=== PATIENT | female | born 1935 | race Caucasian/White ===

== ENCOUNTER 2018-02-24 13:47 | Emergency (ER) | payer OTHER, MEDICARE ==
--- OUTSIDE RECORDS SUMMARY | 2018-02-24 13:49 | XMS REPORT ---
:1935 [facility] Address [address] [place] [address] [address] [place] [address] Care Team Providers Name Role Phone Unavailable Unavailable Unavailable Payers Payer Name Policy Type Policy Number Effective Date Expiration Date Problems This patient has no known problems. Allergies, Adverse Reactions, Alerts Allergy Allergy Status Severity Reaction(s) Onset Inactive Treating Comments Name Type Date Date Clinician codeine DA Active MT 2017-12 00:00:0 0 codeine DA Active MT 2017-07 00:00:0 0 Medications This patient has no known medications.
--- OUTSIDE RECORDS SUMMARY | 2018-02-24 13:49 | XMS REPORT | Clinical Summary ---
:1935 Author Organization [facility] Address [address] [place] [id number] Care Team Providers Name Role Phone Porfirio Palmer MD Primary Care Provider Unavailable Allergies Active Allergy Reactions Severity Noted Date Comments Codeine Other (See Comments) 12/04/2015 Medications Medication Sig Dispensed Refills Start Date End Date Status levothyroxine 0 10/14/2015 Active (SYNTHROID, LEVOTHROID) 100 MCG tablet omeprazole (PriLOSEC) 0 10/11/2015 Active 40 MG capsule polyethylene glycol Take 17 g by 90 packet 0 12/04/2015 Active (MIRALAX) 17 gram mouth daily for packet 90 days. linaclotide (LINZESS) Take 1 capsule 30 capsule 11 12/04/2015 Active 145 mcg capsule (145 mcg total) by mouth daily before breakfast. Active Problems Problem Noted Date Diverticulosis of large intestine without hemorrhage 12/04/2015 Hemorrhoids 12/04/2015 Duodenal diverticulum 12/04/2015 HH (hiatus hernia) 12/04/2015 Angiodysplasia of colon 12/04/2015 Gastroduodenitis 12/04/2015 Hypothyroidism due to acquired atrophy of thyroid 12/04/2015 Gallstones 12/04/2015 Family history of cancer in mother 12/04/2015 Constipation 12/04/2015 Family History Medical History Relation Name Comments Colon cancer Mother Relation Name Status Comments Father Mother Social History Tobacco Use Types Packs/Day Years Used Date Never Smoker Smokeless Tobacco: Never Used Alcohol Use Drinks/Week oz/Week Comments No Sex Assigned at Date Recorded Not on file Job Start Date Occupation Industry Not on file Not on file Not on file Travel History Travel Start Travel End No recent travel history available. Last Filed Vital Signs Not on file Plan of Treatment Health Maintenance Due Date Last Done Comments SHINGLES VACCINES (1 of 2) 10/22/1987 PNEUMOCOCCAL POLYSACCHARIDE VACCINE AGE 65 AND OVER 2002 PNEUMOCOCCAL-13 2002 INFLUENZA VACCINE 09/07/2017 Results Not on fileafter 02/23/2017 Insurance Payer Benefit Plan / Group Subscriber ID Type Phone Address AARP AARP SUPPLEMENT xxxxxxxxx-xx Commercial MEDICARE MEDICARE PART A AND B xxxxxxxxxx Medicare [place], [place] ([place]) [place] [address] Advance Directives Patient has advance care planning documents on file. For more information, please contact:Enoc [id number] [place] [address]
[2018-02-24 16:07] LABS: Absolute Lymphocytes (CBC) 0.9 K/uL (0.7-4.9); Absolute Monocytes 0.4 K/uL (0.1-1.3); Absolute Neutrophil 4.8 K/uL (1.8-8.0); Basophils % 0.5 % (0-1.3); Eosinophils % 3.5 % (0-4.4); Hematocrit 38.1 % (36.0-45.0); Lymphocytes % 13.8 % (15.3-44.8); MPV 8.1 fL (7.6-11.3); Monocytes % 6.4 % (3.3-12.3); RBC Red Blood Cell Count 4.56 M/uL (3.86-4.86)
[2018-02-24] MEDS ORDERED: NA CHLORIDE 0.9% 500 ML ONE (16:19)
[2018-02-24] MEDS ORDERED: ONDANSETRON 4 MG/2 ML VIAL ONE (16:19)
[2018-02-24 16:22] LABS: ALT/SGPT 24 U/L (12-78); AST/SGOT 22 U/L (15-37); Albumin 3.4 g/dL (3.4-5.0); Alkaline Phosphatase 94 U/L (45-117); BUN Blood Urea Nitrogen 8 mg/dL (7-18); Bicarbonate 27 mmol/L (21-32); Bilirubin Direct < 0.1 mg/dL (0-0.2); Bilirubin Total 0.3 mg/dL (0.2-1.0); Glucose Level 105 mg/dL (74-106); Lipase 88 U/L (73-393); Potassium 3.5 mmol/L (3.5-5.1); Protein, Total 7.6 g/dL (6.4-8.2); Sodium Level 135 mmol/L (136-145)
--- NOTE | 2018-02-24 17:26 | RAD REPORT ---
EXAM DESCRIPTION: CT - Abdomen Pelvis W Contrast - 02/24/2018 5:09 pm CLINICAL HISTORY: Abdominal pain, vomiting, diarrhea COMPARISON: May 2014 TECHNIQUE: Biphasic, helical CT imaging of the abdomen and pelvis was performed following 100 ml non -ionic IV contrast. No oral contrast administered. All CT scans are performed using dose optimization technique as appropriate and may include automated exposure control or mA/KV adjustment according to patient size. FINDINGS: No suspicious pleuroparenchymal process in the lung bases. Heart size is normal. Very mini mal pericardial effusion present similar to 2015. Liver shows a fatty infiltration pattern with no focal liver lesions seen. Spleen and pancreas show n o suspicious findings. Small gallstone is seen. No wall thickening or other active gallbladder proces s seen. Biliary tree is normal. Symmetric renal function is seen with no hydronephrosis or suspicious renal mass. No pyelonephritis o r acute parenchymal process. No bladder abnormalities. No adrenal abnormalities. A 5 centimeter hiatal hernia is present. No gastric wall thickening or mass. Patient has a 5 centimet er duodenal diverticulum containing air, food debris and hyperdense material that may be old contrast or medication. Jejunum and duodenum show no acute findings. Appendix is normal. Air and fluid are present in nondila adin colon. There is some hyper dense material in the colon probably the same as what is in the duoden al diverticulum. This is probably Pepto-Bismol or other dense material. Colon is mostly decompressed. Minimal diverticulosis present without diverticulitis. No free air, free fluid or inflammatory stranding. No hernia, mass or bulky lymphadenopathy. Disc and bony degenerative changes are present. No acute or pathologic bone process. Metallic foreign body is seen in the retroperitoneal fat posterior to the left kidney IMPRESSION: Contrast enhanced CT abdomen and pelvis showing no emergent finding. Nonacute findings are detailed in the body of the report and similar to 2015.
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
== END 2018-02-24 18:23 | disposition home or self-care (01) ==
LOC: ER 13:47
DX: R19.7 Diarrhea, unspecified (principal)
CPT/HCPCS: 36415; 74177; 80048; 80076; 83690; 85025; J2405; Q9967

== ENCOUNTER 2019-02-05 06:28 | Emergency (ER) | payer OTHER, MEDICARE ==
--- OUTSIDE RECORDS SUMMARY | 2019-02-05 06:31 | XMS REPORT ---
:1935 Author Organization [facility] Address [address] [place] [address] Care Team Providers Name Role Phone Unavailable Unavailable Unavailable Payers Payer Name Policy Type Policy Number Effective Date Expiration Date Problems This patient has no known problems. Allergies, Adverse Reactions, Alerts Allergy Allergy Status Severity Reaction(s) Onset Inactive Treating Comments Name Type Date Date Clinician codeine DA Active OK 2019-01 00:00:0 0 codeine DA Active OK 2019-01 00:00:0 0 codeine DA Active OK 2018-05 00:00:0 0 codeine DA Active OK 2018-04 00:00:0 0 codeine DA Active OK 2017-12 00:00:0 0 codeine DA Active OK 2017-07 00:00:0 0 Medications This patient has no known medications. Results Test Description Test Time Test Comments Text Results Atomic Results Result Comments - XR FLUORO FOR SPINE 2019-01-10 08:25:00 Patient Name: DOMENICO WYNN ANSHU INJ Unit No: [id number] EXAMS: CPT CODE: [id number] XR FLUORO FOR SPINE INJ 58164 CERVICAL TRANSFORAMINAL INJECTION REFERRING PHYSICIAN: PREOPERATIVE DIAGNOSIS: Cervical radiculitis POSTOPERATIVE DIAGNOSIS: Bilateral cervical radiculopathy PROCEDURES PERFORMED: Fluoroscopically guided needle localization of the bilateral C6, bilateral C7 spinal nerves with transforaminal epidural steroid injection/injections. 2. Transforaminal epidurogram/epidurograms at bilateral C6, bilateral C7 FINDINGS: Poor filling all. Concordant provocation bilateral C6 shoulders, left C7 arm. Pain relief-100%. ANTIBIOTICS:Cefazolin ESTIMATED BLOOD LOSS: Minimal ANESTHESIA: (TIVA ) Total intravenous anesthetic (patient intolerant to sedatives and hypnotics) COMPLICATIONS: None DETAILS OF PROCEDURE: After obtaining stable vital signs, informed consent and IV access, with no known contraindications to proceeding, the patient was taken to the fluoroscopy suite and placed in a supine position with all extremities padded and appropriate monitors placed. A sterile prep and drape was performed over the cervical spine. Using fluoroscopic visualization at each level the insertion site was marked for a paravertebral approach to the foramen. Using standard technique, a 27gauge needle was advanced to the base of the pedicle. In AP view, final positioning was obtained outside the 6 on a clock position on the pedicle. Then, 0.5 ml of Isovue-300 contrast was injected to produce the epidurograms. No paresthesias were elicited with needle insertion or injection and there were no signs of intravascular or intrathecal uptake. Then, 0.5 ml of 4% lidocaine was injected as a test dose with no signs of intravascular or intrathecal uptake. Next, 10 mg of Decadron was injected incrementally with frequent negative aspirations.Each subsequent cervical nerve root sleeve was done with the same technique and medications were used.There were no signs of intravascular or intrathecal uptake. The patient's vital signs remained stable. The patient was taken to the PACU in good condition. [facility] NAME: DOMENICO WYNN ANSHU [address] [facility] PHYS: DOCUD - Maged Eduardo MD [place], [place] [address] : 1935 AGE: 83 SEX: F LOC: NIRAV PHONE #: [phone] EXAM DATE: 01/10/2019 STATUS: REG [facility] FAX #: [phone] RAD #: D/C DT PAGE 1 Signed Report (CONTINUED) Patient Name: DOMENICO WYNN Unit No: [id number] EXAMS: CPT CODE: [id number] XR FLUORO FOR SPINE INJ 96710 <Continued> at 0825 Reported and signed by: Maged Eduardo M.D. CC: Technologist: Summer Nieves(R) Transcribed D/ (08) Brenda [facility] NAME: DOMENICO WYNN ANSHU [address] [facility] PHYS: Maged Dyer MD [place] [address] : 1935 AGE: 83 SEX: F LOC: NIRAV PHONE #: [phone] EXAM DATE: 01/10/2019 STATUS: REG [facility] FAX #: [phone] RAD #: D/C DT PAGE 2 Signed Report Patient Name: DOMENICO WYNN ANSHU Unit No: [id number] EXAMS: CPT CODE: [id number] XR FLUORO FOR SPINE INJ 66005 <Continued> Orig Print D/T: S: 01/10/2019 (08) [facility] NAME: TIANNA,DOMENICO BRASHER [address] [facility] PHYS: Maged Dyer MD [place] [address] : 1935 AGE: 83 SEX: F LOC: NIRAV PHONE #: [phone] EXAM DATE: 01/10/2019 STATUS: REG [facility] FAX #: [phone] RAD #: D/C DT PAGE 3 Signed Report - XR FLUORO FOR SPINE 2018-12-19 12:33:00 Patient Name: DOMENICO WYNN INJ Unit No: [id number] EXAMS: CPT CODE: [id number] XR FLUORO FOR SPINE INJ 60597 LUMBAR TRANSFORAMINAL INJECTION REFERRING PHYSICIAN: PREOPERATIVE DIAGNOSIS: Degenerative Lumbar Disc Disease. POSTOPERATIVE DIAGNOSIS: Bilateral lumbar radiculopathy PROCEDURES PERFORMED 1. Fluoroscopically guided needle localization of the bilateral L4, bilateral L5 spinal nerve/nerves with transforaminal epidural steroid injection/injections. 2. Transforaminal epidurogram/epidurograms at bilateral L4, bilateral L5. FINDINGS: Poor filling all. Concordant provocation bilateral L5 hips. Pain relief-100%. ANTIBIOTIC: Cefazolin ESTIMATED BLOOD LOSS: Minimal ANESTHESIA: (TIVA )Total intravenous anesthetic (patient intolerant to sedatives and hypnotics) COMPLICATIONS: None DETAILS OF PROCEDURE: After obtaining stable vital signs, informed consent and IV access, with no known contraindications to proceeding, the patient was taken to the fluoroscopy suite and placed in a prone position with all extremities padded and appropriate monitors placed. A sterile prep and drape was performed over the lumbosacral spine. Using fluoroscopic visualization at each level the insertion site was marked for a paravertebral approach to the foramen. Using standard technique, a 25 gauge needle was advanced to the base of the pedicle. In AP view, final positioning was obtained outside the 6 on the clock position on the pedicle. Then, 1 ml of Isovue-300 contrast was injected to produce the epidurograms. No paresthesias were elicited with needle insertion or injection and there were no signs of intravascular or intrathecal uptake. Then, with 1 ml of 4% lidocaine and 10 mg of triamcinolone was injected incrementally with frequent negative aspirations. There were no signs of intravascular or intrathecal uptake. Each subsequent level was done using the same technique and medications. The patient's vital signs remained stable. The patient was taken to the PACU in good condition. at 1233 Reported and signed by: Maged Eduardo M.D. [facility] NAME: DOMENICO WYNN [address] [facility] PHYS: Maged Dyer MD [place] [address] : 1935 AGE: 83 SEX: F LOC: NIRAV PHONE #: [phone] EXAM DATE: 12/19/2018 STATUS: REG [facility] FAX #: [phone] RAD #: D/C DT PAGE 1 Signed Report (CONTINUED) Patient Name: DOMENICO WYNN Unit No: [id number] EXAMS: CPT CODE: [id number] XR FLUORO FOR SPINE INJ 69779 <Continued> CC: Maged Eduardo MD Technologist: CHIP ANDERSEN RT(R) Transcribed D/ (1233) t.DARIN.UVD [facility] NAME: DOMENICO WYNN [address] [facility] PHYS: Maged Dyer MD [place], [place] [address] : 1935 AGE: 83 SEX: F LOC: NIRAV PHONE #: [phone] EXAM DATE: 12/19/2018 STATUS: REG [facility] FAX #: [phone] RAD #: D/C DT PAGE 2 Signed Report Patient Name: DOMENICO WYNN ANSHU Unit No: [id number] EXAMS: CPT CODE: [id number] XR FLUORO FOR SPINE INJ 45774 <Continued> Orig Print D/T: S: 12/19/2018 (1236) [facility] NAME: DOMENICO WYNN ANSHU [address] [facility] PHYS: DOCUD - Doctor,Maged De Jesus MD [place], [place] [address] : 1935 AGE: 83 SEX: F LOC: NIRAV PHONE #: [phone] EXAM DATE: 12/19/2018 STATUS: REG [facility] FAX #: [phone] RAD #: D/C DT PAGE 3 Signed Report - XR FLUORO FOR SPINE 2018-06-06 12:24:00 Patient Name: DOMENICO WYNN INJ Unit No: [id number] EXAMS: CPT CODE: [id number] XR FLUORO FOR SPINE INJ 34340 LUMBAR TRANSFORAMINAL INJECTION REFERRING PHYSICIAN: PREOPERATIVE DIAGNOSIS: Degenerative Lumbar Disc Disease. POSTOPERATIVE DIAGNOSIS: Lumbar radiculopathy PROCEDURES PERFORMED 1. Fluoroscopically guided needle localization of the bilateral L4, left L5, left L3 spinal nerve/nerves with transforaminal epidural steroid injection/injections. 2. Transforaminal epidurogram/epidurograms at bilateral L4, left L5, left L3. FINDINGS: Poor filling all. Concordant provocation bilateral L4 back, left L5 hip. Pain relief-100%. ANTIBIOTIC: Cefazolin ESTIMATED BLOOD LOSS: Minimal ANESTHESIA: (TIVA )Total intravenous anesthetic (patient intolerant to sedatives and hypnotics) COMPLICATIONS: None DETAILS OF PROCEDURE: After obtaining stable vital signs, informed consent and IV access, with no known contraindications to proceeding, the patient was taken to the fluoroscopy suite and placed in a prone position with all extremities padded and appropriate monitors placed. A sterile prep and drape was performed over the lumbosacral spine. Using fluoroscopic visualization at each level the insertion site was marked for a paravertebral approach to the foramen. Using standard technique, a 25 gauge needle was advanced to the base of the pedicle. In AP view, final positioning was obtained outside the 6 on the clock position on the pedicle. Then, 1 ml of Isovue-300 contrast was injected to produce the epidurograms. No paresthesias were elicited with needle insertion or injection and there were no signs of intravascular or intrathecal uptake. Then, with 1 ml of 4% lidocaine and 10 mg of triamcinolone was injected incrementally with frequent negative aspirations. There were no signs of intravascular or intrathecal uptake. Each subsequent level was done using the same technique and medications. The patient's vital signs remained stable. The patient was taken to the PACU in good condition. at 4022 Reported and signed by: Maged Eduardo M.D. [facility] NAME: DOMENICO WYNN [address] [facility] PHYS: Maged Dyer MD [place], [place] [address] : 1935 AGE: 82 SEX: F LOC: NIRAV PHONE #: [phone] EXAM DATE: 06/06/2018 STATUS: REG [facility] FAX #: [phone] RAD #: D/C DT PAGE 1 Signed Report (CONTINUED) Patient Name: DOMENICO WYNN ANSHU Unit No: [id number] EXAMS: CPT CODE: [id number] XR FLUORO FOR SPINE INJ 35698 <Continued> CC: Maged Eduardo MD Technologist: JEVON GARCIA RT(R) Transcribed D/ (5161) t.RINKUR.UVD [facility] NAME: DOMENICO WYNN [address] [facility] PHYS: Maged Dyer MD [place], [place] [address] : 1935 AGE: 82 SEX: F LOC: NIRAV PHONE #: [phone] EXAM DATE: 06/06/2018 STATUS: REG [facility] FAX #: [phone] RAD #: D/C DT PAGE 2 Signed Report Patient Name: DOMENICO WYNN Unit No: [id number] EXAMS: CPT CODE: [id number] XR FLUORO FOR SPINE INJ 25910 <Continued> Orig Print D/T: S: 06/06/2018 (1227) [facility] NAME: DOMENICO WYNN [address] [facility] PHYS: DOCUD - DoctorMaged MD [place], [place] [address] : 1935 AGE: 82 SEX: F LOC: NIRAV PHONE #: [phone] EXAM DATE: 06/06/2018 STATUS: REG [facility] FAX #: [phone] RAD #: D/C DT PAGE 3 Signed Report - XR FLUORO FOR SPINE 2018-04-25 11:30:00 Patient Name: DOMENICO WYNN INJ Unit No: [id number] EXAMS: CPT CODE: [id number] XR FLUORO FOR SPINE INJ 73692 LUMBAR TRANSFORAMINAL INJECTION REFERRING PHYSICIAN: PREOPERATIVE DIAGNOSIS: Degenerative Lumbar Disc Disease. POSTOPERATIVE DIAGNOSIS: Bilateral lumbar radiculopathy PROCEDURES PERFORMED 1. Fluoroscopically guided needle localization of the bilateral L4, bilateral L5, bilateral S1 spinal nerve/nerves with transforaminal epidural steroid injection/injections. 2. Transforaminal epidurogram/epidurograms at bilateral L4, bilateral L5, bilateral S1. FINDINGS: Poor filling all. Concordant provocation bilateral L4 legs, left L5 hip, listhesis L4-5. Pain relief-100%. ANTIBIOTIC: Cefazolin ESTIMATED BLOOD LOSS: Minimal ANESTHESIA: (TIVA )Total intravenous anesthetic (patient intolerant to sedatives and hypnotics) COMPLICATIONS: None DETAILS OF PROCEDURE: After obtaining stable vital signs, informed consent and IV access, with no known contraindications to proceeding, the patient was taken to the fluoroscopy suite and placed in a prone position with all extremities padded and appropriate monitors placed. A sterile prep and drape was performed over the lumbosacral spine. Using fluoroscopic visualization at each level the insertion site was marked for a paravertebral approach to the foramen. Using standard technique, a 25 gauge needle was advanced to the base of the pedicle. In AP view, final positioning was obtained outside the 6 on the clock position on the pedicle. Then, 1 ml of Isovue-300 contrast was injected to produce the epidurograms. No paresthesias were elicited with needle insertion or injection and there were no signs of intravascular or intrathecal uptake. Then, with 1 ml of 4% lidocaine and 10 mg of triamcinolone was injected incrementally with frequent negative aspirations. There were no signs of intravascular or intrathecal uptake. Each subsequent level was done using the same technique and medications. The patient's vital signs remained stable. The patient was taken to the PACU in good condition. at 1130 Reported and signed by: Maged Eduardo M.D. [facility] NAME: TIANNA,DOMENICO ANN [address] [facility] PHYS: Maged Dyer MD [place] [address] : 1935 AGE: 82 SEX: F LOC: NIRAV PHONE #: [phone] EXAM DATE: 04/25/2018 STATUS: [facility] FAX #: [phone] RAD #: D/C DT PAGE 1 Signed Report (CONTINUED) Patient Name: DOMENICO WYNN ANSHU Unit No: [id number] EXAMS: CPT CODE: [id number] XR FLUORO FOR SPINE INJ 78789 <Continued> CC: Maged Eduardo MD Technologist: BIA GUZMAN RT(R) Transcribed D/ (6267) t.RINKUR.UVD [facility] NAME: TIANNA,DOMENICO ANN [address] [facility] PHYS: Maged Dyer MD [place] [address] : 1935 AGE: 82 SEX: F LOC: NIRAV PHONE #: [phone] EXAM DATE: 04/25/2018 STATUS: [facility] FAX #: [phone] RAD #: D/C DT PAGE 2 Signed Report Patient Name: DOMENICO WYNN ANSHU Unit No: [id number] EXAMS: CPT CODE: [id number] XR FLUORO FOR SPINE INJ 97448 <Continued> Orig Print D/T: S: 04/28/2018 (2935) [facility] NAME: DOMENICO WYNN ANSHU [address] [facility] PHYS: Maged Dyer MD [place] [address] : 1935 AGE: 82 SEX: F LOC: YAnthonyNATALYA PHONE #: [phone] EXAM DATE: 04/25/2018 STATUS: DEP [facility] FAX #: [phone] RAD #: D/C DT PAGE 3 Signed Report - XR C-SPINE 6+V 2018-04-11 17:30:00 Patient Name: DOMENICO WYNN ANSHU Unit No: [id number] EXAMS: CPT CODE: [id number] XR C-SPINE 6+V 56107 COMPARISON: Concurrent CT. IMAGES PROVIDED: 7 FINDINGS: Grade 1 retrolisthesis of C5-C6 is present. No significant motion is seen with flexion/extension. No acute fracture. Marked disc degeneration is seen at C5-C6. Scattered cervical facet hypertrophy. Soft tissues are unremarkable. Lung apices are clear. IMPRESSION: Multilevel cervical spondylosis, greatest at C5-C6. at 1730 Reported and signed by: Aashish Winchester M.D. CC: Maged Eduardo MD Technologist: RT Sarah.(R) Transcribed D/ (5571) [facility]: DOMENICO WYNN ANSHU [address] [facility] PHYS: Maged Dyer MD : 1935 AGE: 82 SEX: F [place] [address] LOC: GodwinRAD PHONE #: [phone] EXAM DATE: 04/10/2018 STATUS: DEP [facility] FAX #: [phone] RAD #: D/C DT PAGE 1 Signed Report Patient Name: DOMENICO WYNN ANSHU Unit No: [id number] EXAMS: CPT CODE: [id number] XR C-SPINE 6+V 84651 <Continued> Orig Print D/T: S: 04/11/2018 (0022) [facility] NAME: DOMENICO WYNN [address] [facility] PHYS: DOCUD - Doctor,Maged De Jesus MD : 1935 AGE: 82 SEX: F [place], [place] [address] LOC: YAnthonyRAD PHONE #: [phone] EXAM DATE: 04/10/2018 STATUS: DEP [facility] FAX #: [phone] RAD #: D/C DT PAGE 2 Signed Report - CT C-SPINE W/O CONT 2018-04-11 10:32:00 Patient Name: DOMENICO WYNN Unit No: [id number] EXAMS: CPT CODE: [id number] CT C-SPINE W/O CONT 29420 TECHNIQUE: Spiral CT images were obtained with axial images displayed of the cervical spine. Sagittal and coronal reconstructions were also performed. COMPARISON: Concurrent radiographs FINDINGS: Alignment: Retrolisthesis of C5-C6 measures 4 mm. Bone Lesion / Fracture: None present. Prevertebral / Paraspinal Soft Tissues: Unremarkable. C2/3: Broad disc bulge osteophyte complex. No significant foraminal or central canal stenosis. C3/4: Severe left, mild right facet hypertrophy is noted as well as bilateral uncovertebral hypertrophy. There is marked left, moderate right foraminal stenosis. Mild central canal stenosis. C4/5: Diffuse disc bulge is suspected. Moderate bilateral facet hypertrophy. There is mild left foraminal stenosis. No significant right foraminal stenosis. Mild central canal stenosis is visualized. C5/6: Severe disc degeneration with height loss and endplate marrow changes. Grade 1 retrolisthesis. Broad disc bulge osteophyte complex is present as well as severe bilateral uncovertebral hypertrophy. There is moderate to severe left, severe right foraminal stenosis as well as moderate to severe central canal stenosis. C6/7: Broad disc bulge osteophyte complex. Uncovertebral hypertrophy contributes to mild foraminal stenosis. No definite central canal stenosis. C7/T1: No significant abnormality. IMPRESSION: Multilevel cervical spondylosis, greatest at C5-C6, where there is likely moderate to severe central canal stenosis as well as moderate to severe left, severe right foraminal stenosis. at 1032 Reported and signed by: Aashish Winchester M.D. CC: Maged Eduardo MD Technologist: Bennett Johnson,RT(R) CTDI: DLP: Trnscrpt: 04/11/2018 (1032) t.KARL [facility] NAME: DOMENICO WYNN ANSHU [address] [facility] PHYS: Maged Dyer MD : 1935 AGE: 82 SEX: F [place] [address] LOC: Y.RAD PHONE #: [phone] EXAM DATE: 04/10/2018 STATUS: DEP [facility] FAX #: [phone] RAD #: D/C DT PAGE 1 Signed Report Patient Name: DOMENICO WYNN ANSHU Unit No: [id number] EXAMS: CPT CODE: [id number] CT C-SPINE W/O CONT 74008 <Continued> Orig Print D/T: S: 04/11/2018 (1035) [facility] NAME: DOMENICO WYNN [address] PHYS: Maged Dyer MD : 1935 AGE: 82 SEX: F [place] [address] LOC: Y.RAD PHONE #: [phone] EXAM DATE: 04/10/2018 STATUS: DEP [facility] FAX #: [phone] RAD #: D/C DT PAGE 2 Signed Report
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
[2019-02-05 07:25] VITALS: BP 143/80; TEMP 97.8; O2SAT 96
== END 2019-02-05 07:09 | disposition home or self-care (01) ==
LOC: ER 06:28
DX: M62.838 Other muscle spasm (principal); Z88.5 Allergy status to narcotic agent
CPT/HCPCS: 99283

== ENCOUNTER 2022-01-07 12:49 | Emergency (ER) | payer OTHER ==
--- OUTSIDE RECORDS SUMMARY | 2022-01-07 12:52 | XMS REPORT | Continuity of Care Document ---
:1935 Author Organization [facility] t Address [address] [place] [address] Care Team Providers Name Role Phone [phone] Primary Care Physician Unavailable FOG_A_Provider Attending Clinician Unavailable Chun Cortes Attending Clinician Unavailable Tami Lucia Attending Clinician [phone] Chun Cortes Attending Clinician [phone] RONNA CUELLAR Attending Clinician Unavailable DAMIAN CURTIS Attending Clinician Unavailable MALACHI NELSON Attending Clinician Unavailable LULI MALDONADO Attending Clinician Unavailable MD LULI MALDONADO Attending Clinician Unavailable MD RONNA CUELLAR Attending Clinician Unavailable Maged Eduardo Attending Clinician Unavailable FOG_A_Provider Admitting Clinician Unavailable Chun Cortes Admitting Clinician Unavailable KNOW, DOES_NOT Admitting Clinician Unavailable Physician, No Primary or Family Admitting Clinician UnavailLULI Grigsby Admitting Clinician Unavailable MD LULI MALDONADO Admitting Clinician Unavailable MD RONNA CUELLAR Admitting Clinician Unavailable Payers Payer Name Policy Type Policy Number Effective Date Expiration Date S Banner [id number] 2021 00:00:00 [facility] MEDICARE [id number] 2020 ADVANTAGE 00:00:00 Problems Condition Condition Condition Status Onset Resolution Last Treating Co mments Source Name Details Category Date Date Treatment Clinician Date Spinal Spinal Problem Active [facility] stenosis Stenosis 8-16 Orthop e of lumbar of Lumbar 00:00: dic region Region 00 Sports Medicin e Neck pain Neck Pain Problem Active Aza jason 8-08 Orthope 00:00: dic 00 Sports Medicin e 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 4-16 Or thope s s 00:00: dic 00 Sports Medicin e Lumbosacra Lumbosacra Problem Active A zalea l l 3-03 Orthope spondylosi Spondylosi 00:00: di c s s 00 Sports Medicin e Stenosis Stenosis Problem Active [facility] a of spinal of Spinal 2-07 Orth ope canal due Canal Due 00:00: dic to bone to Bone 00 Sports Medicin e Connective Connective Problem Active A chrissy tissue and Tissue and 2-07 Or thope disc Disc 00:00: dic stenosis Stenosis 00 Sports of of Medicin interverte Interverte e bral bral foramina Foramina Multiple-l Multiple-l Problem Active A chrissy evel evel 2-07 Orthope cervical Cervical 00:00: dic spondylosi Spondylosi 00 Sp orts s with s with Medicin radiculopa Radiculopa e thy thy 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 00:00: dic 00 Sports Medicin e Spinal Spinal Problem Active 2018-02 [facility] stenosis Stenosis 1-07 Orthop e in in 00:00: dic cervical Cervical 00 Sports region Region Medicin e Cervical Cervical Problem Active 2018-02 [facility] a disc Disc 1-07 [facility] disorder Disorder 00:00: dic with with 00 Sports radiculopa Radiculopa Me dicin thy thy e Cervical Cervical Problem Active [facility] a disc Disc 2-19 [facility]ope prolapse Prolapse 00:00: dic with with 00 Sports radiculopa Radiculopa Me dicin thy thy e Lumbar Lumbar Problem Active 2017-02 [facility] disc Disc 1-27 [facility]ope prolapse Prolapse 00:00: dic with with 00 Sports radiculopa Radiculopa Me dicin thy thy e Degenerati Degenerati Problem Active 2017-02 Megan lowe on of on of 03-05 Orthope lumbar Lumbar 00:00: dic interverte Interverte 00 Sp orts bral disc bral Disc Medi tegan e Lumbosacra Lumbosacra Problem Active 2017-02 A chrissy dumont stenosis l Stenosis - Or thope 00:00: dic 00 Sports Medicin e Hemorrhoid Hemorrhoid Disease Active 2015-02 M ethodi s s 00:00: Hospita 00 l Duodenal Duodenal Disease Active 2015-02 Metho di diverticul diverticul um um 00:00: Hospita 00 l HH (hiatus HH (hiatus Disease Active 2015-02 M ethodi hernia) hernia) 00:00: Hospita 00 l 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 ethodi enitis enitis 00:00: Hospita 00 l Hypothyroi Hypothyroi Disease Active 2015-02 M ethodi dism due dism due to to 00:00: Hospita acquired acquired 00 l atrophy of atrophy of thyroid thyroid Gallstones Gallstones Disease Active 2015-02 M ethodi 00:00: Hospita 00 l Family Family Disease Active 2015-02 Methodi history of history of cancer in cancer in 00:00: Hosp davide mother mother 00 l Constipati Constipati Disease Active 2015-02 M ethodi on on 00:00: Hospita 00 l Knee joint 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 1-18 Orth ope 00:00: dic 00 Sports Medicin e Osteoarthr Osteoarthr Problem Active A chrissy itis of itis of 8-08 Orthope knee Knee 00:00: dic 00 Sports Medicin e 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 Styloid 7-07 Orthope tenosynovi Tenosynovi 00:00: di c tis tis 00 Sports Medicin e Tibialis Tibialis Problem Active [facility] a tendinitis Tendinitis 6-16 Or thope 00:00: dic 00 Sports Medicin e 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 00:00: dic 00 Sports Medicin e Degenerati Degenerati Problem Active A chrissy on of on of - Orthope cervicotho Cervicotho 00:00: di c racic racic 00 Sports interverte Interverte Me dicin bral disc bral Disc e Low back Low Back Problem Active [facility] a pain Pain 08-25 Orthope 00:00: dic 00 Sports Medicin e Acquired Acquired Problem Active [facility] a spondyloli Spondyloli 08-25 Or thope sthesis sthesis 00:00: dic 00 Sports Medicin e Lumbar Lumbar Problem Active [facility] radiculopa Radiculopa -24 Or thope thy thy 00:00: dic 00 Sports Medicin e Synovitis Synovitis Problem Active Aza jason and and 2-13 Orthope tenosynovi Tenosynovi 00:00: di c tis tis 00 Sports Medicin e Current Current Problem Active [facility] tear of Tear of 2-13 Orthope medial Medial 00:00: dic cartilage Cartilage 00 Spor ts AND/OR AND/OR Medicin meniscus Meniscus e of knee of Knee Anemia Anemia Problem Active 2011-02 [facility] 02-25 Orthope 00:00: dic 00 Sports Medicin e 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 02-25 Or thope t t 00:00: dic 00 Sports Medicin e Diverticul Diverticul Disease Active M ethodi osis osis [facility]osp[facility] l AVM AVM Disease Active [facility]i (arteriove (arteriove [facility] malformati malformati l on) of on) of colon colon GERD GERD Disease Active Methodi (gastroeso (gastroeso st phageal phageal [facility]ospita reflux reflux l disease) disease) Dysphagia Dysphagia Disease Active Met hodi [facility]osp[facility] l Allergies, Adverse Reactions, Alerts Allergy Allergy Status Severity Reaction(s) Onset Inactive Treating Comm ents Source Name Type Date Date Clinician codeine DA Active SV ITCHING 2021-02 [facility] 02-28 [place] 00:00: [facility]ope 00 dic Hospita l codeine DA Active SV unknown 2021-02 [facility] -14 [place] 00:00: Orthope 00 dic Hospita l No Known DA Active U [facility] Allergie 09-22 [facility] 00:00: Orthope 00 dic Hospita l gabapent DA Active U 2022-0 [facility] in - [place] 00:00: Orthope 00 dic Hospita l tizanidi DA Active U 2021-0 [facility] ne 05-29 [place] 00:00: Orthope 00 dic Hospita l oxcarbaz DA Active U 2021-0 [facility] epine 05-29 [place] 00:00: Orthope 00 dic Hospita l duloxeti DA Active U 2021-0 [facility] ne 05-29 [place] 00:00: Orthope 00 dic Hospita l pregabal DA Active U 2021-0 [facility] in - [place] 00:00: Orthope 00 dic Hospita l codeine DA Active MT ITCHING 2021-0 [facility] 3-15 [place] 00:00: Orthope 00 dic Hospita l gabapent DA Active U UNKNOWN 2021-0 [facility] in -14 [place] 00:00: Orthope 00 dic Hospita l tizanidi DA Active U UNKNOWN 2021-0 [facility] ne -14 [place] 00:00: Orthope 00 dic Hospita l oxcarbaz DA Active U UNKNOWN 2021-0 [facility] epine 3-14 [place] 00:00: Orthope 00 dic Hospita l duloxeti DA Active U UNKNOWN 2021-0 [facility] ne 3-14 [place] 00:00: Orthope 00 dic Hospita l pregabal DA Active U UNKNOWN 2021-0 [facility] in 3-14 [place] 00:00: Orthope 00 dic Hospita l codeine DA Active MT ITCHING 2021-0 [facility] 2-21 [place] 00:00: Orthope 00 dic Hospita l codeine DA Active MT 2020-0 [facility] 1-13 [place] 00:00: Orthope 00 dic Hospita l codeine DA Active MT ITCHING 2020-0 [facility] 1-13 [place] 00:00: Orthope 00 dic Hospita l codeine DA Active MT 2019-1 [facility] 2-04 [place] 00:00: Orthope 00 dic Hospita l codeine DA Active MT ITCHING 2019-1 [facility] 2-04 [place] 00:00: Orthope 00 dic Hospita l codeine DA Active MT 2019-1 [facility] 2-03 [place] 00:00: Orthope 00 dic Hospita l codeine DA Active MT 2019-0 [facility] 4-30 [place] 00:00: Orthope 00 dic Hospita l codeine DA Active MT 2019-0 [facility] 3-19 [place] 00:00: Orthope 00 dic Hospita l FLUCONAZ DRUG Active MD ZHAO JOHANSEN 1-17 [place] 00:00: n 00 codeine DA Active MT 2017-02 [facility] 1-15 [place] 00:00: Orthope 00 dic Hospita l codeine DA Active MT [facility] 6-20 [place] 00:00: Orthope 00 dic Hospita l Codeine Propensi Active Other (See 2015-02 Met hodi ty to Comments) 0-27 st adverse 00:00: Hospita reaction 00 l s to drug Codeine Allergy Active 2011-02 [facility] to 02-25 Orthope substanc 00:00: dic e 00 Sports Medicin e Family History Family Member Diagnosis Comments Start Date Stop Date Source Natural father [facility] Social [facility] Social Habit Start Date Stop Date Quantity Comments Source Alcohol intake 2020-08-12 2020-08-12 Current [facility] 00:00:00 00:00:00 non-drinker of Hospital alcohol (finding) Tobacco use and 2017-01-04 2017-01-04 Smokeless tobacco Me thodist exposure 00:00:00 00:00:00 non-user Hospital Sex Ass[birth year] At [birth year] [facility] 00:00:00 00:00:00 Hospital Smoking Status Start Date Stop Date Source Never smoked tobacco [facility]spital Medications Ordered Filled Start Stop Current Ordering Indication Dosage Frequency Signature Comments Components Source Medication Medication Date Date Medication? Clinician (SIG) Name Name radha Yes Apply Metho di ne [address] (KENALOG) 14:58: Hospita 0.5 % cream 59 l estradioL Yes .01g Insert Method i (ESTRACE) 7-[address] 0.01 % (0.1 14:58: into the Ho spita mg/gram) 59 vagina. l vaginal cream acetaminoph Yes 500mg Q6H Take 500 M ethodi en 7-[address] (TYLENOL) 14:57: mouth Hospita 500 MG 55 every 6 l tablet (six) hours as needed for mild pain. aspirin 81 Yes 81mg Chew 81 Meth inocencio mg chewable 7-[address] tablet 14:57: Hospita 55 l omega Yes 1{tbl} Take 1 Methodi 3-dha-epa-f 08-[address] jerry oil 14:57: mouth. Hospita (Fish Oil) 55 l 1,000 mg (120 mg-180 mg) capsule MULTIVITAMI Yes 1{tbl} Take 1 Me thodi N ORAL 08-[address] 14:57: mouth. Hospita 55 l FERROUS Yes 1{tbl} Take 1 Method i SULFATE 08-[address] ORAL 14:57: mouth. Hospita 55 l gabapentin Yes 125mg Q.[id number] Take 125 Methodi (Neurontin) 08-12 [id number] mg by s t 250 mg/5 mL 14:57: 3D mouth 3 Hos holden solution 55 (three) l times a day. linaCLOtide Yes 145ug QD Take 1 Met hodi (Linzess) [address] 145 mcg 00:00: (145 mcg Hospit a capsule 00 total) by l mouth daily before breakfast. omeprazole Yes 40mg QD Take 1 Metho di (PriLOSEC) 08-[address] 40 MG 00:00: (40 mg Hospita capsule 00 total) by l mouth daily. DULoxetine Yes 30mg QD Take 30 mg M ethodi (CYMBALTA) [address] 30 MG 00:00: daily. Hospita capsule 00 l aspirin 325 aspirin 325 No aspirin [facility] mg tablet mg tablet 09 325 mg Ort hope 00:00: tablet dic 00 Sports Medicin e Multiple Multiple No Multiple A zalea Vitamin Vitamin 09 Vitamin Orthop e 00:00: dic 00 Sports Medicin e omeprazole omeprazole No omeprazole [facility] 40 mg 40 mg 02-15 40 mg Orthope capsule,del capsule,del 00:00: capsule,de dic ayed ayed 00 layed Sports release release release Medici n e Tylenol Tylenol No Tylenol Azal ea Extra Extra 09 Extra Orthope Strength Strength 00:00: Strength d ic 500 mg 500 mg 00 500 mg Sports tablet tablet tablet Medicin e aspirin 325 aspirin 325 No aspirin [facility] mg tablet mg tablet 02-15 325 mg Ort hope 00:00: tablet dic 00 Sports Medicin e Multiple Multiple No Multiple A zalea Vitamin Vitamin -09 Vitamin Orthop e 00:00: dic Sports Medicin e omeprazole omeprazole No omeprazole [facility] 40 mg 40 mg 1-09 40 mg Orthope capsule,del capsule,del 00:00: capsule,de dic ayed ayed 00 layed Sports release release release Medici n e Tylenol Tylenol No Tylenol Azal ea Extra Extra 1-09 Extra Orthope Strength Strength 00:00: Strength d ic 500 mg 500 mg 00 500 mg Sports tablet tablet tablet Medicin e aspirin 325 aspirin 325 No aspirin [facility] mg tablet mg tablet 02-15 325 mg Ort hope 00:00: tablet dic Sports Medicin e Multiple Multiple No Multiple A zalea Vitamin Vitamin -09 Vitamin Orthop e 00:00: dic Sports Medicin e omeprazole omeprazole No omeprazole [facility] 40 mg 40 mg 1-09 40 mg Orthope capsule,del capsule,del 00:00: capsule,de dic ayed ayed 00 layed Sports release release release Medici n e Tylenol Tylenol No Tylenol Azal ea Extra Extra 1-09 Extra Orthope Strength Strength 00:00: Strength d ic 500 mg 500 mg 00 500 mg Sports tablet tablet tablet Medicin e polyethylen 2015-02 Yes 17g QD Take 17 g M ethodi e glycol 0-[address] (MIRALAX) 00:00: daily for Hos holden 17 gram 00 90 days. l packet levothyroxi Yes Method i ne 10-13 st (SYNTHROID, 00:00: Hospit a LEVOTHROID) 00 l 100 MCG tablet omeprazole Yes 40mg QD Take 40 mg M ethodi (PriLOSEC) 10-[address] 40 MG 00:00: daily. Hospita capsule 00 l hydrocodone hydrocodone No hydrocodon [facility] 7.5 7.5 8-08 e 7.5 Orthope mg-acetamin mg-acetamin 00:00: mg-acetami dic ophen 325 ophen 325 00 nophen 325 Sports mg tablet mg tablet mg tablet Medicin 1-2 po q 1-2 po q 1-2 po q e 6-8 hours 6-8 hours 6-8 hours PRN pain PRN pain PRN pain Medrol Medrol No Medrol [facility] (Ministerio) 4 mg (Ministerio) 4 mg 8-08 (Ministerio) 4 mg Orthope tablets in tablets in 00:00: tablets in dic a dose pack a dose pack 00 a dose Sports as dir as dir pack as Medicin dir e hydrocodone hydrocodone No hydrocodon [facility] 7.5 7.5 8-08 e 7.5 Orthope mg-acetamin mg-acetamin 00:00: mg-acetami dic ophen 325 ophen 325 00 nophen 325 Sports mg tablet mg tablet mg tablet Medicin 1-2 po q 1-2 po q 1-2 po q e 6-8 hours 6-8 hours 6-8 hours PRN pain PRN pain PRN pain Medrol Medrol No Medrol [facility] (Ministerio) 4 mg (Ministerio) 4 mg 8-08 (Ministerio) 4 mg Orth[facility] tablets in tablets in 00:00: tablets in dic a dose pack a dose pack 00 a dose Sports as dir as dir pack as Medicin dir e Keflex 500 Keflex 500 No Keflex 500 [place] mg capsule mg capsule 8-05 mg capsule Orthope take 1 po take 1 po 00:00: take 1 po dic Q.I.D. Q.I.D. 00 Q.I.D. Sports Medicin e Keflex 500 Keflex 500 No Keflex 500 [facility] mg capsule mg capsule 8-05 mg capsule Orthope take 1 po take 1 po 00:00: take 1 po dic Q.I.D. Q.I.D. 00 Q.I.D. Sports Medicin e etodolac ER etodolac ER No etodolac [facility] 500 mg 500 mg 5-17 ER 500 mg Orthop e tablet,exte tablet,exte 00:00: tablet,ext dic nded nded 00 ended Sports release 24 release 24 release 24 Medicin hr i po qd hr i po qd hr i po qd e pc pc pc etodolac ER etodolac ER No etodolac [facility] 500 mg 500 mg 5-17 ER 500 mg Orthop e tablet,exte tablet,exte 00:00: tablet,ext dic nded nded 00 ended Sports release 24 release 24 release 24 Medicin hr i po qd hr i po qd hr i po qd e pc pc pc Synthroid Synthroid 2011-02 No Synthroid [facility] 137 mcg 137 mcg 1-19 137 mcg Orthop e tablet RX tablet RX 00:00: tablet RX dic by other MD by other MD 00 by other Sports Medicisaac e Synthroid Synthroid 2011-02 No Synthroid [facility] 137 mcg 137 mcg 1-19 137 mcg Orthop e tablet RX tablet RX 00:00: tablet RX dic by other MD by other MD 00 by other Sports MD Milagros razo Synthroid Synthroid 2011-02 No Synthroid [facility] 137 mcg 137 mcg 1-19 137 mcg Orthop e tablet RX tablet RX 00:00: tablet RX dic by other MD by other MD 00 by other Sports MD Linares e Synthroid Synthroid 2011-02 No Synthroid [facility] 137 mcg 137 mcg 1-19 137 mcg Orthop e tablet RX tablet RX 00:00: tablet RX dic by other MD by other MD 00 by other Sports Medicisaac e Synthroid Synthroid 2011-02 No Synthroid [facility] 137 mcg 137 mcg 1-19 137 mcg Orthop e tablet RX tablet RX 00:00: tablet RX dic by other MD by other MD 00 by other Sports MD Linares e Synthroid Synthroid 2011-02 No Synthroid [facility] 137 mcg 137 mcg 1-19 137 mcg Orthop e tablet RX tablet RX 00:00: tablet RX dic by other MD by other MD 00 by other Sports Medicisaac razo aspirin 325 aspirin 325 No aspirin [facility] mg mg 325 mg Orthope tablet,elizabeth tablet,elizabeth tablet,del dic yed release yed release ayed S ports RX by other RX by other release RX Medicin MD CAIN by other e diazepam 2 diazepam 2 No diazepam 2 [facility] mg tablet mg tablet mg tablet Orthope RX by other RX by other RX by dic MD CAIN other Sports Medicisaac e omeprazole omeprazole No omeprazole [facility] 10 mg 10 mg 10 mg Orth[facility] capsule,del capsule,del capsule,de dic ayed ayed layed Sports release RX release RX release RX Medicin by other MD by other MD by other e Prilosec 10 Prilosec 10 No Prilosec [facility] mg oral mg oral 10 mg oral Ort hope suspension, suspension, suspension dic delayed delayed ,delayed Sport s release RX release RX release RX Medicin by other MD by other MD by other e Fish Oil Fish Oil No Fish Oil Aza jason Orthope dic Sports Medicin e gabapentin gabapentin No 2capsul BID gabapentin [facility] 100 mg 100 mg e(s) 100 mg Orthope capsule capsule capsule dic Take 2 Take 2 Take 2 Sports capsules capsules capsules Med icin twice a day twice a day twice a e by oral by oral day by route for route for oral route 30 days. 30 days. for 30 days. iron iron No iron [facility] dic Sports Medicin e omeprazole omeprazole No omeprazole [facility] 10 mg 10 mg 10 mg Orthope capsule,del capsule,del capsule,de dic ayed ayed layed Sports release RX release RX release RX Medicin by other MD by other MD by other e tramadol 50 tramadol 50 No 1 BID tramadol [facility] mg tablet mg tablet 50 mg Orth ope Take 1 Take 1 tablet dic tablet tablet Take 1 Sports twice a day twice a day tablet Medicin by oral by oral twice a e route as route as day by needed for needed for oral route 10 days. 10 days. as needed for 10 days. Fish Oil Fish Oil No Fish Oil Aza jason Orthope dic Sports Medicin e gabapentin gabapentin No 2capsul BID gabapentin [facility] 100 mg 100 mg e(s) 100 mg Orthope capsule capsule capsule dic Take 2 Take 2 Take 2 Sports capsules capsules capsules Med icin twice a day twice a day twice a e by oral by oral day by route for route for oral route 30 days. 30 days. for 30 days. iron iron No iron [facility] dic Sports Medicin e tramadol 50 tramadol 50 No 1 Q1D tramadol [facility] mg tablet mg tablet 50 mg Orth ope Take 1 Take 1 tablet dic tablet tablet Take 1 Sports every day every day tablet Med icin by oral by oral every day e route as route as by oral needed for needed for route as 30 days. 30 days. needed for 30 days. triamcinolo triamcinolo No triamcinol [facility] ne ne one Orthope acetonide acetonide acetonide dic 0.5 % 0.5 % 0.5 % Sports topical topical topical Medici n cream APPLY cream APPLY cream e A THIN A THIN APPLY A LAYER TO LAYER TO THIN LAYER THE THE TO THE AFFECTED AFFECTED AFFECTED AREA(S) BY AREA(S) BY AREA(S) BY TOPICAL TOPICAL TOPICAL ROUTE 2 ROUTE 2 ROUTE 2 TIMES PER TIMES PER TIMES PER DAY DAY DAY Fish Oil Fish Oil No Fish Oil Aza jason Orthope dic Sports Medicin e gabapentin gabapentin No 2capsul BID gabapentin [facility] 100 mg 100 mg e(s) 100 mg Orthope capsule capsule capsule dic Take 2 Take 2 Take 2 Sports capsules capsules capsules Med icin twice a day twice a day twice a e by oral by oral day by route for route for oral route 30 days. 30 days. for 30 days. iron iron No iron [facility] dic Sports Medicin e tramadol 50 tramadol 50 No 1 Q1D tramadol [facility] mg tablet mg tablet 50 mg Orth ope Take 1 Take 1 tablet dic tablet tablet Take 1 Sports every day every day tablet Med icin by oral by oral every day e route as route as by oral needed for needed for route as 30 days. 30 days. needed for 30 days. triamcinolo triamcinolo No triamcinol [facility] ne ne one Orthope acetonide acetonide acetonide dic 0.5 % 0.5 % 0.5 % Sports topical topical topical Medici n cream APPLY cream APPLY cream e A THIN A THIN APPLY A LAYER TO LAYER TO THIN LAYER THE THE TO THE AFFECTED AFFECTED AFFECTED AREA(S) BY AREA(S) BY AREA(S) BY TOPICAL TOPICAL TOPICAL ROUTE 2 ROUTE 2 ROUTE 2 TIMES PER TIMES PER TIMES PER DAY DAY DAY Fish Oil Fish Oil No Fish Oil Aza jason Orthope dic Sports Medicin e gabapentin gabapentin No 2capsul BID gabapentin [facility] 100 mg 100 mg e(s) 100 mg Orthope capsule capsule capsule dic Take 2 Take 2 Take 2 Sports capsules capsules capsules Med icin twice a day twice a day twice a e by oral by oral day by route for route for oral route 30 days. 30 days. for 30 days. iron iron No iron [facility] dic Sports Medicin e tramadol 50 tramadol 50 No 1 Q1D tramadol [facility] mg tablet mg tablet 50 mg Orth ope Take 1 Take 1 tablet dic tablet tablet Take 1 Sports every day every day tablet Med icin by oral by oral every day e route as route as by oral needed for needed for route as 30 days. 30 days. needed for 30 days. triamcinolo triamcinolo No triamcinol [facility] ne ne one Orthope acetonide acetonide acetonide dic 0.5 % 0.5 % 0.5 % Sports topical topical topical Medici n cream APPLY cream APPLY cream e A THIN A THIN APPLY A LAYER TO LAYER TO THIN LAYER THE THE TO THE AFFECTED AFFECTED AFFECTED AREA(S) BY AREA(S) BY AREA(S) BY TOPICAL TOPICAL TOPICAL ROUTE 2 ROUTE 2 ROUTE 2 TIMES PER TIMES PER TIMES PER DAY DAY DAY aspirin 325 aspirin 325 No aspirin [facility] mg mg 325 mg [facility] tablet,elizabeth tablet,elizabeth tablet,del dic yed release yed release ayed S ports RX by other RX by other release RX Medicin MD by other e diazepam 2 diazepam 2 No diazepam 2 [facility] mg tablet mg tablet mg tablet Orthope RX by other RX by other RX by dic MD MD tala CAIN Sports Medicin e omeprazole omeprazole No omeprazole [facility] 10 mg 10 mg 10 mg [facility] capsule,del capsule,del capsule,de dic ayed ayed layed Sports release RX release RX release RX Medicin by other MD by other MD by other e Prilosec 10 Prilosec 10 No Prilosec [facility] mg oral mg oral 10 mg oral Ort hope suspension, suspension, suspension dic delayed delayed ,delayed Sport s release RX release RX release RX Medicin by other MD by other MD by other e Vital Signs Vital Name Observation Time Observation Value Comments Source Height 2021-12-01 00:00:00 65 [in_i] [facility] BMI (Body Mass 2021-12-01 00:00:00 29.1 kg/m2 [facility] Body Weight 2021-12-01 00:00:00 175 [lb_av] [facility] BP Diastolic 2021-10-13 00:00:00 83 mm[Hg] [facility] Height 2021-10-13 00:00:00 65 [in_i] [facility] BMI (Body Mass 2021-10-13 00:00:00 29.1 kg/m2 [facility]) Sports Medicine BP Systolic 2021-10-13 00:00:00 137 mm[Hg] [facility] Body Weight 2021-10-13 00:00:00 175 [lb_av] [facility] Height 2021-09-14 00:00:00 65 [in_i] [facility] HEIGHT 2020-05-07 15:23:00 160 cm WEIGHT 2020-05-07 15:23:00 81.1 kg Procedures This patient has no known procedures. Plan of Care Planned Activity Planned Date Details Comments Source Future Scheduled Test 2021-12-12 HEPATITIS B VACCINES [facility] 04:12:28 (1 of 3 - 3-dose series) [code = HEPATITIS B VACCINES (1 of 3 - 3-dose series)] Future Scheduled Test 2021-12-12 COVID-19 VACCINE (#1) [facility] 04:12:28 [code = COVID-19 VACCINE (#1)] Future Scheduled Test 2021-12-12 SHINGLES VACCINES (1 [facility] 04:12:28 of 2) [code = SHINGLES VACCINES (1 of 2)] Future Scheduled Test 2021-12-12 65+ PNEUMOCOCCAL [facility] 04:12:28 VACCINE (1 - PCV) [code = 65+ PNEUMOCOCCAL VACCINE (1 - PCV)] Future Scheduled Test 2021-12-12 INFLUENZA VACCINE [facility] 04:12:28 [code = INFLUENZA VACCINE] Future Appointment 2022-01-19 Danii Callahan, [id number] [facility] 13:00:00 [facility] [id number] Instructions [facility] Encounters Start End Encounter Admission Attending Care Care Encounter Source Date/Time Date/Time Type Type Clinicians Facility Department ID 2021-12-30 2021-12-30 Outpatient FOG_A_Provi AOSM AO [id number] [facility] 00:00:00 00:00:00 jay [id number] Orthop e dic Sports Medicin e 2021-12-29 2021-12-29 Outpatient MICHELLE ReyesTO PAIN [id number] [facility] 11:13:00 11:13:00 Chun [facility] l 2021-12-29 2021-12-29 Outpatient FOG_A_Provi AOSM AOSM [address] 00:00:00 00:00:00 jay [id number] Orthop e dic Sports Medicin e 2021-12-29 2021-12-29 Chun Latham AOSM [place] - Ortho [id number] [address] 00:00:00 00:00:00 Crissy Cortes MD: 7401 FOG_[place] [facility] Orthopedic Sport [facility]_OP [facility] [address] , Ph. 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 [phone] 2021-10-13 2021-10-13 Outpatient ELINOR Lucia [id number] 00:00:00 00:00:00 Tami [id number] 2021-09-22 2021-09-22 Outpatient MICHELLE ReyesTO PAIN [id number] [facility] 12:16:00 12:16:00 Chun [facility] 2021-09-22 2021-09-22 Outpatient FOG_A_Provi AOSM AOSM [address] 00:00:00 00:00:00 jay [id number] Orthop e dic Sports Medicin e 2021-09-22 2021-09-22 Outpatient ELINOR Cortes [id number] 00:00:00 00:00:00 Chun Latham [id number] 2021-09-22 2021-09-22 Chun Latham AO [place] - Ortho [id number] [address] 00:00:00 00:00:00 Crissy Cortes MD: 7401 FOG_[place] dic [facility]_OP [facility] [address] , Ph. 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 [phone] 2021-09-14 2021-09-14 Outpatient ELINOR LuciaEMILIE [id number] 00:00:00 00:00:00 Tami [id number] 2021-09-04 2021-09-04 Outpatient FOG_A_Provi AOSM AOSM [address] 00:00:00 00:00:00 jay [id number] Orthop e dic Sports Medicin e 2021-07-23 2021-07-23 Outpatient FOG_A_Provi AOSM AOSM [address] 09:59:00 09:59:00 jay [id number] Orthop e dic Sports Medicin e 2021-06-01 2021-06-01 Outpatient MICHELLE ReyesTO PAIN [id number] [facility] 12:28:00 12:28:00 Chun [facility] 2021-04-21 2021-04-21 Outpatient OZZY Reyes PAIN [id number] [facility] 09:32:00 09:32:00 Chun Bhatt [place] [facility] 2021-03-30 2021-03-30 Outpatient OZZY Reyes PAIN [id number] [facility] 13:36:00 13:36:00 Chun Kinsey [place] [facility] 2020-08-12 2020-08-12 Outpatient ALISA [facility] [id number] [place] 00:00:00 00:00:00 RONNA [address] 2020-07-24 2020-07-24 Outpatient ALISA [facility] [id number] [place] 00:00:00 00:00:00 RONNA [address] 2020-07-18 2020-07-18 Outpatient ALISA [facility] [id number] [place] 00:00:00 00:00:00 RONNA [address] 2020-07-18 2020-07-18 Outpatient ALISA [facility] [id number] [place] 00:00:00 00:00:00 RONNA [address] 2020-07-15 2020-07-15 Outpatient ALISA [facility] [id number] [place] 00:00:00 00:00:00 RONNA [address] 2020-05-22 2020-05-22 Outpatient OZZY CortesTO [id number] [facility] 11:09:21 11:09:21 Chun Kellie [place] [facility] 2020-05-07 2020-05-07 Outpatient NICK CURTIS [place] MDA [id number] 14:42:04 16:05:44 DAMIAN mathews 2020-05-07 2020-05-07 Outpatient NICK NELSON MDA MDA [id number] 14:14:25 14:14:25 MALACHI mathews 2020-03-07 2020-03-07 Outpatient OZZY Cortes RADI [id number] [facility] 10:00:00 10:00:00 Chun Hopkins [place] [facility] 2019-12-27 2019-12-27 Outpatient ERICA [facility] 2100 [id number] [place] 00:00:00 00:00:00 LULI [address] 2019-12-14 2019-12-14 Outpatient ERICA, [place] [id number] [place] 00:00:00 00:00:00 LULI [address] 2019-12-11 2019-12-11 Outpatient ERICA [facility] 2100 [id number] [place] 00:00:00 00:00:00 LULI [address] 2019-12-11 2019-12-11 Outpatient ALISA, [facility] [id number] [place] 00:00:00 00:00:00 RONNA [address] 2019-12-06 2019-12-06 Outpatient ALISA, [facility] [id number] [place] 00:00:00 00:00:00 RONNA [address] 2019-11-19 2019-11-19 Outpatient ERICA, [facility] 2100 [id number] [place] 00:00:00 00:00:00 LULI [address] 2019-11-15 2019-11-15 Outpatient ALISA [facility] [id number] [place] 00:00:00 00:00:00 RONNA [address] 2019-11-08 2019-11-08 Outpatient ALISA, [facility] [id number] [place] 00:00:00 00:00:00 RONNA [address] 2019-03-02 2019-03-02 Outpatient Doctor, OZZY RADI [id number] [facility] 11:00:00 11:00:00 Maged 31 [place] [facility] 2019-02-19 2019-02-19 Outpatient Doctor, OZZY PAIN [id number] [facility] 12:00:00 12:00:00 Maged 39 [place] [facility] Results Test Description Test Time Test Comments Results Result [facility] Comments - XR FLUORO FOR 2021-12-29 SPINE INJ 15:23:00 [facility] 1935 Sex: F Patient Name: DOMENICO WYNN Unit No: [id number] EXAMS: CPT CODE: [id number] XR FLUORO FOR SPINE INJ 83526 LUMBAR FACET INJECTION REFERRAL PHYSICIAN: None PREOPERATIVE DIAGNOSIS: Lumbar spondylosis without myelopathy or radiculopathy POSTOPERATIVE DIAGNOSIS: Lumbar spondylosis without myelopathy or radiculopathy PROCEDURE PERFORMED: Fluoroscopically guided needle localization of the right L3-4, bilateral L4-5 and right L5-S1 facets with arthrograms and diagnostic injection of local anesthetic and steroid. FINDINGS: All joints showed marked degenerative changes with a interconnecting sinus between the bilateral L4-5 facets are the degenerative L4-5 interspinous ligament. Provocation was negative. Anesthetic response was positive with the patient noting complete relief of her low back pain. Preinjection VAS 6/10. Postinjection VAS 0/10. Steroid response pending follow-up. ESTIMATED BLOOD LOSS: Minimal ANESTHESIA: TIVA COMPLICATIONS: None DETAILS OF PROCEDURE: After obtaining stable vital signs, informed consent and IV access patient was taken to the fluoroscopy suite where the patient was placed in a prone position with all extremities padded and appropriate monitors placed. The patient was sterilely prepped prepped and draped over the lumbosacral spine. Using fluoroscopic visualization, the insertion sites were marked for a paravertebral approach to each joint. Using standard technique, a 26 -gauge needle was inserted into each joint capsule without paresthesias. At all levels, aspiration was negative for clear serous fluid. Isovue-300 contrast 0.2 mL was injected to produce each arthrogram. There were no signs of intravascular or intrathecal uptake. Bupivicaine 0.75% 0.25 mL with Lidocaine 4% 0.25 ml and triamcinolone 16 mg was then injected incrementally into each joint. There were no signs of intravascular or intrathecal uptake. The patient's vital signs remained stable. All needles were removed and the patient was taken to the PACU in good condition. Electronically Signed: Chun Cortes M.D. Image: Image 1 Image: Image 2 Image: Image 3 [facility] NAME: DOMENICO WYNN [address] [facility] PHYS: Chun Laureano MD [place] [address] : 1935 AGE: 86 SEX: F LOC: NIRAV PHONE #: [phone] EXAM DATE: 12/29/2021 STATUS: REG [facility] FAX #: [phone] RAD #: D/C DT PAGE 1 Signed Report (CONTINUED) Patient Name: DOMENICO WYNN ANSHU Unit No: [id number] EXAMS: CPT CODE: [id number] XR FLUORO FOR SPINE INJ 76443 (Continued) at 1523 Reported and signed by: Chun Cortes M.D. CC: Chun Cortes MD Technologist: CHIP ANDERSEN RT(R) Transcribed D/ (1523) [facility] [place] NAME: DOMENICO WYNN ANSHU [address] [facility] PHYS: Chun Laureano MD [place] [address] : 1935 AGE: 86 SEX: F LOC: NIRAV PHONE #: [phone] EXAM DATE: 12/29/2021 STATUS: REG [facility] [place] FAX #: [phone] RAD #: D/C DT PAGE 2 Signed Report Patient Name: DOMENICO WYNN ANSHU Unit No: [id number] EXAMS: CPT CODE: [id number] XR FLUORO FOR SPINE INJ 69167 (Continued) Orig Print D/T: S: 12/29/2021 (1526) [place] [facility] [place] NAME: DOMENICO WYNN ANSHU [address] [facility] PHYS: Chun Laureano MD [place] [address] : 1935 AGE: 86 SEX: F LOC: NIRAV PHONE #: [phone] EXAM DATE: 12/29/2021 STATUS: REG [facility] [place] FAX #: [phone] RAD #: D/C DT PAGE 3 Signed Report - XR FLUORO FOR 2021-09-22 SPINE INJ 19:08:00 [facility] 1935 Sex: F Patient Name: DOMENICO WYNN Unit No: [id number] EXAMS: CPT CODE: [id number] XR FLUORO FOR SPINE INJ 38835 LUMBAR EPIRADICULAR INJECTION REFERRAL PHYSICIAN: None PREOPERATIVE DIAGNOSIS: Lumbar Radiculitis POSTOPERATIVE DIAGNOSIS: L4-5 grade 1 spondylolisthesis with stenosis and bilateral lumbar radiculitis PROCEDURES PERFORMED: Fluoroscopically guided needle localization of the bilateral L4 and bilateral L5 spinal nerves with transforaminal epidurograms and epidural injection of local anesthetic and steroid. FINDINGS: Fairly good flow seen through the foramen with mild flow limitation the bilateral L4-5 lateral recesses. Centrally there was mild to moderate anterior epidural displacement across the L3-4 and L4-5 discs. Provocation with injection was negative. Anesthetic response was positive with the patient noting relief of her bilateral lower extremity pain. Preinjection VAS 4/10. Postinjection VAS 0/10. Steroid response pending follow-up. ESTIMATED BLOOD LOSS: Minimal ANESTHESIA: TIVA COMPLICATIONS: None DETAILS OF PROCEDURE: After obtaining stable vital signs, informed consent and IV access, with no contraindications, the patient was taken to the operating room and placed in a prone position with all extremities padded and appropriate monitors placed. The patient was sterilely prepped and draped over the lumbosacral spine. Using fluoroscopic visualization the insertion sites were marked for paravertebral approaches and using standard technique, a 25 gauge needle was advanced to the base of each pedicle without paresthesias. Isovue-300 contrast 0.2 mL of was injected at each level incrementally with frequent negative aspirations to produce each epidurogram. There were no signs of intravascular or intrathecal uptake. Bupivicaine 0.75% 0.25 mL with lidocaine 4% 0.5 mL and Decadron 5 mg was then incrementally injected with frequent negative aspirations at each level and again there were no signs of intravascular or intrathecal uptake. The needles were removed and the patient was taken to the PACU in good condition. Electronically Signed: Chun Cortes M.D. Image: Image 1 Image: Image 2 at 1908 Reported and signed by: Chun Cortes M.D. [facility] NAME: DOMENICO WYNN ANSHU [address] [facility] PHYS: Chun Laureano MD [place] [address] : 1935 AGE: 85 SEX: F LOC: GodwinNATALYA PHONE #: [phone] EXAM DATE: 09/22/2021 STATUS: REG [facility] [place] FAX #: [phone] RAD #: D/C DT PAGE 1 Signed Report (CONTINUED) Patient Name: DOMENICO WYNN ANSHU Unit No: [id number] EXAMS: CPT CODE: [id number] XR FLUORO FOR SPINE INJ 54920 (Continued) CC: Chun Cortes MD Technologist: Ezequiel Murphy(R) Transcribed D/ (1907) [facility] NAME: DOMENICO WYNN ANSHU [address] [facility] PHYS: Chun Laureano MD [place] [address] : 1935 AGE: 85 SEX: F LOC: GodwinNATALYA PHONE #: [phone] EXAM DATE: 09/22/2021 STATUS: REG [facility] [place] FAX #: [phone] RAD #: D/C DT PAGE 2 Signed Report Patient Name: DOMENICO WYNN ANSHU Unit No: [id number] EXAMS: CPT CODE: [id number] XR FLUORO FOR SPINE INJ 88936 (Continued) Orig Print D/T: S: 09/22/2021 (1910) [place] [facility] [place] NAME: DOMENICO WYNN [address] [facility] PHYS: Chun Laureano MD [place], [place] [address] : 1935 AGE: 85 SEX: F LOC: NIRAV PHONE #: [phone] EXAM DATE: 09/22/2021 STATUS: REG [facility] FAX #: [phone] RAD #: D/C DT PAGE 3 Signed Report - XR FLUORO FOR 2021-06-01 SPINE INJ 20:49:00 [facility] 1935 Sex: F Patient Name: DOMENICO WYNN Unit No: [id number] EXAMS: CPT CODE: [id number] XR FLUORO FOR SPINE INJ 64932 DIAGNOSTIC LUMBAR FACET RFTC REFERRAL PHYSICIAN: None Preoperative diagnosis: Lumbar spondylosis without radiculopathy or myelopathy Postoperative diagnosis: Lumbar spondylosis without radiculopathy or myelopathy Procedure performed: Fluoroscopically guided needle localization of the bilateral L3 and bilateral L4 dorsal median branches and bilateral L5 dorsal rami with stereotactic localization and radiofrequency thermocoagulation. Findings:Initial anesthetic response was negative with the patient in persistent low back pain. Good stimulation was obtained at each level without radicular stimulation and no radicular blockade was obtained. Preinjection VAS 5/10. Postinjection VAS 5/10. Final outcome pending follow-up. Estimated blood loss: Minimal Anesthesia: TIVA Complications: None Details of procedure: After obtaining stable vital signs, informed consent and IV access, with no contraindications to proceeding, the patient was taken to the operating room and placed in a prone position with all extremities padded and appropriate monitors placed. The patient was sterilely prepped and draped over the lumbosacral spine. Using fluoroscopic visualization the insertion sites were marked for paravertebral approaches and using standard technique, a 20-gauge 1 cm bare tip insulated SMK needle was guided to the base of each transverse process and sacral ala without paresthesias. Aspiration was negative. Sensory stimulation was carried out at 0.6 volts and motor stimulation was carried out at 1.5-2 volts with needle tip position adjusted to optimize stimulation. No radicular stimulation was obtained at any site. Lidocaine 4% 0.25 mL with bupivicaine 0.75% 0.25 mL was then injected incrementally with frequent negative aspirations at each site. There were no signs of intravascular or intrathecal uptake. Two radiofrequency lesions were then carried out at each dorsal branch at 80 degrees Celsius for 60 seconds, adjusting the needle tip position between the 2 lesions along the course of each dorsal branch. No paresthesias were elicited. The patient's vital signs remained stable. All needles were removed and the patient was taken to the PACU in good condition. Image: Image 1 Image: Image 2 [facility] NAME: DOMENICO WYNN ANSHU [address] [facility] PHYS: Chun Laureano MD [place], [place] [address] : 1935 AGE: 85 SEX: F LOC: NIRAV PHONE #: [phone] EXAM DATE: 06/01/2021 STATUS: REG [facility] [place] FAX #: [phone] RAD #: D/C DT PAGE 1 Signed Report (CONTINUED) Patient Name: DOMENICO WYNN ANSHU Unit No: [id number] EXAMS: CPT CODE: [id number] XR FLUORO FOR SPINE INJ 12152 (Continued) at 2048 Reported and signed by: Chun Cortes M.D. CC: Technologist: Summer Nieves(R) Transcribed D/ (2048) David.[facility] NAME: DOMENICO WYNN ANSHU [address] [facility] PHYS: Chun Laureano MD [place], [place] [address] : 1935 AGE: 85 SEX: F LOC: NIRAV PHONE #: [phone] EXAM DATE: 06/01/2021 STATUS: REG [facility] [place] FAX #: [phone] RAD #: D/C DT PAGE 2 Signed Report Patient Name: DOMENICO WYNN ANSHU Unit No: [id number] EXAMS: CPT CODE: [id number] XR FLUORO FOR SPINE INJ 07184 () Orig Print D/T: S: 06/01/2021 (2051) [place] [facility] NAME: DOMENICO WYNN ANSHU [address] [facility] PHYS: Chun Laureano MD [place], [place] [address] : 1935 AGE: 85 SEX: F LOC: NIRAV PHONE #: [phone] EXAM DATE: 06/01/2021 STATUS: REG [facility] FAX #: [phone] RAD #: D/C DT PAGE 3 Signed Report - XR FLUORO FOR 2021-04-21 SPINE INJ 16:57:00 [facility]U : 1935 Sex: F Patient Name: DOMENICO WYNN ANSHU Unit No: [id number] EXAMS: CPT CODE: [id number] XR FLUORO FOR SPINE INJ 90507 LUMBAR EPIRADICULAR INJECTION REFERRAL PHYSICIAN: None PREOPERATIVE DIAGNOSIS: Lumbar Radiculitis POSTOPERATIVE DIAGNOSIS: Lumbar spondylosis and disc degeneration with grade one L4-5 spondylolisthesis, stenosis and lumbar radiculitis PROCEDURES PERFORMED: Fluoroscopically guided needle localization of the bilateral L4 and bilateral L5 spinal nerves with transforaminal epidurograms and epidural injection of local anesthetic and steroid. FINDINGS: Restricted flow seen through all foramen with mild horizontal root signs bilaterally at L4-5. Flow was minimally limited in the anterior epidural space across the L3-4 disc. Provocation with injection was negative. Anesthetic response was positive with the patient noting relief of her low back and bilateral lower extremity pain. Preinjection VAS 4/10. Postinjection VAS 0/10. Steroid response pending follow-up. ESTIMATED BLOOD LOSS: Minimal ANESTHESIA: TIVA COMPLICATIONS: None DETAILS OF PROCEDURE: After obtaining stable vital signs, informed consent and IV access, with no contraindications, the patient was taken to the operating room and placed in a prone position with all extremities padded and appropriate monitors placed. The patient was sterilely prepped and draped over the lumbosacral spine. Using fluoroscopic visualization the insertion sites were marked for paravertebral approaches and using standard technique, a 25 gauge needle was advanced to the base of each pedicle without paresthesias. Isovue-300 contrast 0.2 mL of was injected at each level incrementally with frequent negative aspirations to produce each epidurogram. There were no signs of intravascular or intrathecal uptake. Bupivicaine 0.75% 0.25 mL with lidocaine 4% 0.5 mL and Decadron 5 mg was then incrementally injected with frequent negative aspirations at each level and again there were no signs of intravascular or intrathecal uptake. The needles were removed and the patient was taken to the PACU in good condition. Image: Image 1 Image: Image 2 at 4122 Reported and signed by: Chun Cortes M.D. [place] [facility] [place] NAME: DOMENICO WYNN ANSHU [address] [facility] PHYS: Chun Laureano MD [place], [place] [address] : 1935 AGE: 85 SEX: F LOC: GodwinNATALYA PHONE #: [phone] EXAM DATE: 04/21/2021 STATUS: REG [facility] FAX #: [phone] RAD #: D/C DT PAGE 1 Signed Report (CONTINUED) Patient Name: DOMENICO WYNN ANSHU Unit No: [id number] EXAMS: CPT CODE: [id number] XR FLUORO FOR SPINE INJ 95735 (Continued) CC: Chun Cortes MD Technologist: CHIP ANDERSEN RT(R) Transcribed D/ (9027) [facility] [place] NAME: DOMENICO WYNN [address] [facility] PHYS: Chun Laureano MD [place] [address] : 1935 AGE: 85 SEX: F LOC: Y.NATALYA PHONE #: [phone] EXAM DATE: 04/21/2021 STATUS: REG [facility] FAX #: [phone] RAD #: D/C DT PAGE 2 Signed Report Patient Name: DOMENICO WYNN ANSHU Unit No: [id number] EXAMS: CPT CODE: [id number] XR FLUORO FOR SPINE INJ 35423 (Continued) Orig Print D/T: S: 04/21/2021 (1700) [facility] [place] NAME: DOMENICO WYNN [address] [facility] PHYS: Chun Laureano MD [place] [address] : 1935 AGE: 85 SEX: F LOC: YAnthonyNATALYA PHONE #: [phone] EXAM DATE: 04/21/2021 STATUS: REG [facility] [place] FAX #: [phone] RAD #: D/C DT PAGE 3 Signed Report - XR FLUORO FOR 2021-03-30 SPINE INJ 20:38:00 [facility] 1935 Sex: F Patient Name: DOMENICO WYNN Unit No: [id number] EXAMS: CPT CODE: [id number] XR FLUORO FOR SPINE INJ 28750 DIAGNOSTIC LUMBAR FACET DORSAL BRANCH BLOCK REFERRAL PHYSICIAN: None Preoperative diagnosis: Lumbar spondylosis without radiculopathy or myelopathy Postoperative diagnosis: Lumbar spondylosis without radiculopathy or myelopathy Procedure performed: Fluoroscopically guided needle localization of the bilateral L3 and bilateral L4 dorsal median branches and bilateral L5 dorsal rami with diagnostic blockade. Findings:Initial anesthetic response was positive with the patient noting a marked reduction of her low back pain with standing sitting and forward bending. No radicular blockade was obtained. Preinjection VAS 8/10. Postinjection VAS 2/10. Consider RFTC. Estimated blood loss: Minimal Anesthesia: TIVA Complications: None Details of procedure: After obtaining stable vital signs, informed consent and IV access, with no contraindications to proceeding, the patient was taken to the operating room and placed in a prone position with all extremities padded and appropriate monitors placed. The patient was sterilely prepped and draped over the lumbosacral spine. Using fluoroscopic visualization the insertion sites were marked for paravertebral approaches and using standard technique, a 25-gauge needle was guided to the base of each transverse process and sacral ala without paresthesias. Aspiration was negative. Isovue-300 contrast 0.2 mL was injected incrementally with frequent negative aspirations at each site to confirm appropriate spread. There were no signs of intravascular or intrathecal uptake. Bupivacaine 0.75% 0.4 mL was then injected incrementally with frequent negative aspirations at each dorsal branch. There were no signs of intravascular or intrathecal uptake. The patient's vital signs remained stable. All needles were removed and the patient was taken to the PACU in good condition. Image: Image 1 Image: Image 2 Image: Image 3 at 2038 Reported and signed by: Chun Cortes M.D. [place] [facility] [place] NAME: DOMENICO WYNN [address] [facility] PHYS: Chun Laureano MD [place], [place] [address] : 1935 AGE: 85 SEX: F LOC: NIRAV PHONE #: [phone] EXAM DATE: 03/30/2021 STATUS: REG [facility] [place] FAX #: [phone] RAD #: D/C DT PAGE 1 Signed Report (CONTINUED) Patient Name: DOMENICO WYNN ANSHU Unit No: [id number] EXAMS: CPT CODE: [id number] XR FLUORO FOR SPINE INJ 97058 (Continued) CC: Chun Cortes MD Technologist: CHIP ANDERSEN RT(R) Transcribed D/ (2037) [facility] [place] NAME: DOMENICO WYNN ANSHU [address] [facility] PHYS: Chun Laureano MD [place] [address] : 1935 AGE: 85 SEX: F LOC: NIRAV PHONE #: [phone] EXAM DATE: 03/30/2021 STATUS: REG [facility] [place] FAX #: [phone] RAD #: D/C DT PAGE 2 Signed Report Patient Name: DOMENICO WYNN ANSHU Unit No: [id number] EXAMS: CPT CODE: [id number] XR FLUORO FOR SPINE INJ 18195 (Continued) Orig Print D/T: S: 03/30/2021 (2040) [facility] NAME: DOMENICO WYNN ANSHU [address] [facility] PHYS: Chun Laureano MD [place] [address] : 1935 AGE: 85 SEX: F LOC: NIRAV PHONE #: [phone] EXAM DATE: 03/30/2021 STATUS: REG [facility] FAX #: [phone] RAD #: D/C DT PAGE 3 Signed Report - XR FLUORO FOR 2020-05-23 SPINE INJ 19:58:00 [facility] : 1935 Sex: F Patient Name: DOMENICO WYNN Unit No: [id number] EXAMS: CPT CODE: [id number] XR FLUORO FOR SPINE INJ 08846 LUMBAR FACET INJECTION DIAGNOSTIC REFERRAL PHYSICIAN: None PREOPERATIVE DIAGNOSIS: Lumbar spondylosis without myelopathy or radiculopathy POSTOPERATIVE DIAGNOSIS: Lumbar spondylosis without myelopathy or radiculopathy PROCEDURE PERFORMED: Fluoroscopically guided needle localization of the right L3-4, bilateral L4-5 and bilateral L5-S1 facets with arthrograms and diagnostic injection of local anesthetic and steroid. FINDINGS: All facet showed marked capsular degeneration moderate to marked joint hypertrophy with grade 1 spondylolisthesis noted at L4-5. Provocation with injection was negative. Anesthetic response was negative with the patient having persistent pain in her feet although low back pain was improved. Preinjection VAS 5/10. Postinjection VAS 0/10 in the low back and 9/10 in the bilateral feet. Steroid response pending follow-up. ESTIMATED BLOOD LOSS: Minimal ANESTHESIA: TIVA COMPLICATIONS: None DETAILS OF PROCEDURE: After obtaining stable vital signs, informed consent and IV access patient was taken to the fluoroscopy suite where the patient was placed in a prone position with all extremities padded and appropriate monitors placed. The patient was sterilely prepped prepped and draped over the lumbosacral spine. Using fluoroscopic visualization, the insertion sites were marked for a paravertebral approach to each joint. Using standard technique, a 26 -gauge needle was inserted into each joint capsule without paresthesias. At all levels, aspiration was negative for clear serous fluid. Isovue-300 contrast 0.2 mL was injected to produce each arthrogram. There were no signs of intravascular or intrathecal uptake. Bupivicaine 0.75% 0.5 mL with Lidocaine 4% 0.25 ml and triamcinolone 16 mg was then injected incrementally into each joint. There were no signs of intravascular or intrathecal uptake. The patient's vital signs remained stable. All needles were removed and the patient was taken to the PACU in good condition. Image: Image 1 Image: Image 2 at 1957 Reported and signed by: Chun Cortes M.D. [facility] NAME: DOMENICO WYNN ANSHU [address] [facility] PHYS: Chun Laureano MD [place] [address] : 1935 AGE: 84 SEX: F LOC: GodwinNATALYA PHONE #: [phone] EXAM DATE: 05/23/2020 STATUS: REG [facility] FAX #: [phone] RAD #: D/C DT PAGE 1 Signed Report (CONTINUED) Patient Name: DOMENICO WYNN ANSHU Unit No: [id number] EXAMS: CPT CODE: [id number] XR FLUORO FOR SPINE INJ 02116 (Continued) CC: Technologist: Summer Nieves(R) Transcribed D/ (1957) [facility] NAME: TIANNAAAYUSH MathewsMAXWELL BRASHER [address] [facility] PHYS: Chun Laureano MD [place] [address] : 1935 AGE: 84 SEX: F LOC: NIRAV PHONE #: [phone] EXAM DATE: 05/23/2020 STATUS: REG [facility] [place] FAX #: [phone] RAD #: D/C DT PAGE 2 Signed Report Patient Name: DOMENICO WYNN ANSHU Unit No: [id number] EXAMS: CPT CODE: [id number] XR FLUORO FOR SPINE INJ 81111 (Continued) Orig Print D/T: S: 05/23/2020 (2000) [facility] NAME: DOMENICO WYNN ANSHU [address] [facility] PHYS: Chun Laureano MD [place] [address] : 1935 AGE: 84 SEX: F LOC: NIARV PHONE #: [phone] EXAM DATE: 05/23/2020 STATUS: REG [facility] FAX #: [phone] RAD #: D/C DT PAGE 3 Signed Report - CT L-SPINE W/O 2020-03-07 CONTRAST 11:14:00 [facility] : 1935 Sex: F Patient Name: DOMENICO WYNN Unit No: [id number] EXAMS: CPT CODE: [id number] CT L-SPINE W/O CONTRAST 46097 DIAGNOSIS: 1. At L1-2 there is increased disc degeneration and retrolisthesis since the previous examination of March 17, 2016. Mild canal and foraminal narrowing is seen. 2. At L2-3 there is mild retrolisthesis and disc degeneration with associated disc bulging. Mild bilateral foraminal narrowing is present with moderate narrowing of the central canal. 3. At L3-4 there is 2 mm of disc bulging with moderate to marked central canal stenosis and facet and ligamentum flavum hypertrophic and degenerative change. Mild to moderate bilateral foraminal narrowing is present. 4. At L4-5 there is increased degenerative spondylolisthesis which is grade 1 with disc bulging. Moderate left and mild right foraminal narrowing is present. Moderate to marked central canal stenosis is seen with facet and ligamentum canal stenosis as increased since the previous exam. Facet and ligamentum flavum hypertrophic and degenerative changes are present. 5. At L5-S1 there is a slight degenerative spondylolisthesis with 2 mm of disc bulging. Slight narrowing of the foramina is seen without canal stenosis. Facet degeneration is present. COMMENT: COMPARISON: March 17, 2016 Scans were performed from L1 to S1 without contrast and reconstructions were obtained. Disc configurations are as described. Spondylitic changes are as noted. Atherosclerotic calcification is seen in the aorta and iliac vessels without evidence for an. The description of the levels of these findings is consistent with the prior exam. at 1114 Reported and signed by: Martin Green MD CC: Chun Cortes MD Technologist: Bennett Johnson,RT(R) CTDI: DLP: Trnscrpt: 03/07/2020 (1114) t.SDR.JCL [facility] NAME: DOMENICO WYNN [address] [facility] PHYS: Chun Laureano MD : 1935 AGE: 84 SEX: F [place] [address] LOC: Y.RAD PHONE #: [phone] EXAM DATE: 03/07/2020 STATUS: REG CLI FAX #: [phone] RAD #: D/C DT PAGE 1 Signed Report Patient Name: DOMENICO WYNN ANSHU Unit No: [id number] EXAMS: CPT CODE: [id number] CT L-SPINE W/O CONTRAST 67694 (Continued) Orig Print D/T: S: 03/07/2020 (1117) [facility] NAME: DOMENICO WYNN [address] [facility] PHYS: Chun Laureano MD : 1935 AGE: 84 SEX: F [place] [address] LOC: Y.RAD PHONE #: [phone] EXAM DATE: 03/07/2020 STATUS: REG CLI FAX #: [phone] RAD #: D/C DT PAGE 2 Signed Report SARS-CoV-2 (COVID-19) RNA [Presence] in Respiratory sp ecimen by 2019-12-11 21:57:55 JAYLAN with probe detection Test Item Value Reference Range Interpretation Comme nts SARS-CoV-2 (COVID-19) RNA [Presence] in Respiratory Not detected No t-Detected specimen by JAYLAN with probe detection (test code = 65568-2) [id number]-9 (COVID-19) RNA [Presence] in Respiratory specimen by JAYLAN with probe [id number] 21:39:12 Test Item Value Reference Range Interpretation Comments SARS-CoV-2 (COVID-19) RNA Not detected Not-Detected [Presence] in Respiratory specimen by JAYLAN with probe detection (test code = 11176-4) [facility]- XR C-SPINE 6+[id number] 16:25:00 Patient Name: DOMENICO WYNN Unit No: [id number] EXAMS: CPT CODE: [id number] XR C- SPINE 6+V 00174 COMPARISON: Concurrent CT. IMAGES PROVIDED: 7 views of the cervical spine FINDINGS: Grade 1 retrolisthesis of C5-C6. Marked disc degeneration is present at C5-C6 level with endplate marrow changes. No pathologic motion with flexion/extension. No acute fracture. Scattered cervical facet hypertrophy.Soft tissues are unremarkable. Visualized lungs are clear. IMPRESSION: Multilevel cervical spondylosis without evidence of dynamic instability. Electronically Signed by Feli Winchester on03/05/2019 at 1625 Reported and signed by: Aashish Winchester M.D. CC: Maged Eduardo MD Technologist: RT. Sarah(R) Transcribed D/ (1625) HeatherFranky [facility] NAME: DOMENICO WYNN [address] [facility] PHYS: Maged Dyer MD : 1935 AGE: 83 SEX: F [place], [place] [address] LOC: Y.RAD PHONE #: [phone] EXAM DATE: 03/02/2019 STATUS: DEP CLI FAX #: [phone] RAD #: D/C DT PAGE 1 Signed Report Patient Name: DOMENICO WYNN ANSHU Unit No: [id number] EXAMS: CPT CODE: [id number] XR C-SPINE 6+V 12646 (Continued) Orig PrintD/T: S: 03/05/2019 (1628) [facility] NAME: DOMENICO WYNN ANSHU [address] [facility] PHYS: Maged Dyer MD : 1935 AGE: 83 SEX: F [place], [place] [address] LOC: Y.RAD PHONE #: [phone] EXAM DATE: 03/02/2019 STATUS: DEP CLI FAX #: [phone] RAD #:D/C DT PAGE 2 Signed Report- CT UP EXTREM W/O CONT [id number] 10:06:00 Patient Name: DOMENICO WYNN Unit No: [id number] EXAMS: CPT CODE: [id number] [place]TREM W/[place] [address] TECHNIQUE: Volumetric CT data of the left shoulder was obtained without use of intravenous contrast. Images were then viewed in the axial, coronal and sagittal planes. CT radiation dose optimization is achieved for this examination by the use of a CT protocol in accordance with ACR practice standards and adherence to labor specialist's recommendations. INDICATION: LEFT SHOULDER PAIN COMPARISON: None. FINDINGS: AC joint: Moderate degenerative changes. Rotator cuff: Rotator cuff musculature iswithin normal limits in volume. No definite full-thickness tear is identified. Glenohumeral joint: Qzmf-vx-fjzawhnz joint space narrowing of the glenohumeral joint is present with small osteophytes. Other: The visualized left lung is clear. No calcified loose bodies identified. The IMPRESSION: 1. Mildto moderate left glenohumeral osteoarthritis. 2. Moderate AC joint degenerative change. 3. No acute findings. at 1006 Reported and signed by: Aashish Winchester M.D. CC: Maged Eduardo MD Technologist: Bennett Johnson,RT(R) CTDI: DLP: Trnscrpt: 03/05/2019 (1006) HeatherFranky [facility] NAME: DOMENICO WYNN [address] [facility] PHYS: DOCUD - DoctorMaged MD : 1935 AGE: 83 SEX: F [place], [place] [address]MIXG NO: [id number] LOC: Y.RAD PHONE #: [phone] EXAM DATE: 03/02/2019 STATUS: DEP CLI FAX #: [phone] RAD #: D/C DT PAGE 1 Signed Report Patient Name: DOMENICO WYNN Unit No: [id number] EXAMS: CPT CODE: [id number] [place]TREM W/[place] [address] (Continued) Orig Print D/T: S: 03/05/2019(1009) [facility] NAME: DOMENICO WYNN [address] [facility] PHYS: DOCUD - DoctorMaged MD : 1935 AGE: 83 SEX: F [place], [place] [address] LOC: Y.RAD PHONE #: [phone] EXAM DATE: 03/02/2019 STATUS: DEP CLI FAX #: [phone] RAD #: D/C DT PAGE 2 Signed Report- CT C-SPINE W/O [id number] 10:02:00 Patient Name: DOMENICO WYNN Unit No: [id number] EXAMS: CPT CODE: [id number] CT C-SPINE W/O CONT 16815 TECHNIQUE: Spiral CT images were obtained with axial images displayed of the cervical spine. Sagittal and coronal reconstructions were also performed. COMPARISON: CT dated 04/10/2018 FINDINGS: Alignment: Grade 1 retrolisthesis of C5-C6. Bone Lesion / Fracture: None present. Prevertebral / Paraspinal Soft Tissues: Pharyngeal senescent calcification is incidentally noted. No suspicious lesion.. C2/3: Disc bulge ossified complex is present. No significant foraminal or central canal stenosis. C3/4: Left greater than right facet and uncovertebral hypertrophy contribute to severe left, moderate right foraminal stenosis. Mild central canal stenosis is suspected. C4/5: Broad disc bulge osteophyte complex is present as well as moderate bilateral facet hypertrophy. There is mild left foraminal stenosis as well as mild central canal stenosis. No significant right foraminal stenosis is visualized. C5/6: Grade 1 retrolisthesis. Marked disc degeneration with height loss and endplate marrow changes. Broad disc bulge ossified complex is noted as well as severe bilateral uncovertebral hypertrophy. Thereis severe bilateral foraminal stenosis, greater on the right, as well as likely moderate to severe central canal stenosis. These findings have slightly increased compared to prior exam. C6/7: Broad disc bulge ossified complex is visualized as well as bilateral uncovertebral hypertrophy. The mild bilateral foraminal stenosis is suggested without significant central canal stenosis. C7/T1: No significant abnormality. IMPRESSION: Advanced multilevel cervical spondylosis, greatest at C5-C6, where there is severe foraminal stenosis as well as likely moderate to severe central canal stenosis. at 1002 Reported and signed by: Aashish Winchester M.D. [facility] NAME: DOMENICO WYNN [address] [facility] PHYS: JHONUD - Maged Eduardo MD : 1935 AGE: 83 SEX: F [place] [address] LOC: Y.RAD PHONE #: [phone] EXAM DATE: 03/02/2019 STATUS: DEP CLI FAX #: [phone] RAD #: D/C DT PAGE 1 Signed Report (CONTINUED) Patient Name: DOMENICO WYNN ANSHU Unit No: [id number] EXAMS: CPT CODE: [id number] CT C-SPINE W/O CONT 43723 (Continued) CC: Maged Eduardo MD Technologist: RT Lian(R) CTDI: DLP: Trnscrpt: 03/05/2019 (1002) t.RINKUR.J [facility] NAME: DOMENICO WYNN ANSHU [address] [facility] PHYS: CANDELARIA - Maged Eduardo MD : 1935 AGE: 83 SEX: F [place] [address] LOC: Y.RAD PHONE #: [phone] EXAM DATE: 03/02/2019 STATUS: DEP CLI FAX #: [phone] RAD #: D/C DT PAGE 2 Signed Report Patient Name: DOMENICO WYNN ANSHU Unit No: [id number] EXAMS: CPT CODE: [id number] CT C-SPINE W/O CONT 88019 (Continued) Orig Print D/T: S: 03/05/2019 (1006) [facility] NAME: DOMENICO WYNN ANSHU [address] PHYS: DOCUD - DoctorMaged MD : 1935 AGE: 83 SEX: F [place], [place] [address] LOC: GodwinRADPHONE #: [phone] EXAM DATE: 03/02/2019 STATUS: DEP CLI FAX #: [phone] RAD #: D/C DT PAGE 3 Signed Report- XR FLUORO FOR SPINE [id number] 11:16:00 Patient Name: DOMENICO WYNN Unit No: [id number] EXAMS: CPT CODE: [id number] XR FLUORO FOR SPINE INJ 18339 LUMBAR DISCOGRAM AND PLACEMENT OF INTRADISCAL STEROIDS REFERRING PHYSICIAN: PREOPERATIVEDIAGNOSIS: Degenerative lumbar disc disease. POSTOPERATIVE DIAGNOSIS: Lumbar degenerative disc disease 2. PROCEDURE PERFORMED: Fluoroscopically guided needle localization of the level L3-4, L4-5, L5-O3jhqum with provocative discography, placement of intradiscal steroids FINDINGS: The level L3-4, L4-5, L5-S1 discogram showed: a) Provocation was negative at L3-4 low-pressure indeterminate discs at L4-5 L5-S1 b) L4-5 disc and L5-S1 disc indeterminate with annular degeneration c) Injectate volume:4 ml,1 cc Omnipaque dye, 10 mg Kenalog, 10 mg Ancef, 1 mL 0.75% Marcaine ANTIBIOTIC: Cefazolin IV and intradiscal ESTIMATED BLOOD LOSS:Minimal ANESTHESIA:(TIVA) Total intravenous anesthetic (patient intolerant to sedatives and hypnotics) COMPLICATIONS:None DETAILS OF PROCEDURE: After obtaining stable vital signs, informed consent and IV access, there were no laboratory, radiographic or other contraindications to proceeding. The patient received preoperative antibiotics and was taken to the fluoroscopy suite where the patient was placed in a prone position with all extremities padded and appropriate monitors placed. The patient was sterilely prepped and draped over the lumbosacral spine. Under fluoroscopic visualization the levels , L3-4, L4-5, L5-S1 discs were visualized and the insertion sites weremarked for paramedian approaches. Lidocaine 1.5%, 2 ml, was infiltrated into the skin, subcutaneous tissue, and superficial musculature after which a 20 gauge spinal introducer needle was advanced to the level of the facets. A 25 gauge curved B-bevel needle was then passed through the [facility]: DOMENICO WYNN [address] [facility] PHYS: Maged Dyer MD [place], [place] [address] : 1935 AGE: 83 SEX: F LOC: NIRAV PHONE #: [phone] EXAM DATE: 02/19/2019 STATUS: REG [facility] [place] FAX #: [phone] RAD #: D/C DT PAGE 1 Signed Report (CONTINUED)Patient Name: DOMENICO WYNN ANSHU Unit No: [id number] EXAMS: CPT CODE: [id number] XR FLUORO FOR SPINE INJ 13930 (Continued) introducer and advanced into the center of the disc. No paresthesias were elicited. Isovue 300 contrast was then injected with a manometric syringe to produce the discogram. Opening, symptomatic and peak pressures were recorded. Each disc was then injected with antibiotics and the symptomatic discs were also injected with triamcinolone/bupivacaine. The needles were removed andsterile Band-Aids were placed over the insertion sites. The patient was taken to the recovery room in stable condition. at 1116 Reported and signed by: Maged Eduardo M.D. CC: Maged Eduardo MD Technologist: VERA DODGE. RT(R) Transcribed D/ (1116) HeatherUVD [facility] NAME: TIANNADOMENICONAGI BRASHER [address] [facility] PHYS: Maged Dyer MD [place], [place] [address] : 1935 AGE: 83 SEX: F LOC: NIRAV PHONE #: [phone] EXAM DATE: 02/19/2019 STATUS: REG [facility] [place] FAX #: [phone] RAD #: D/C DT PAGE 2 Signed Report Patient Name: DOMENICO WYNN ANSHU Unit No: [id number] EXAMS: CPT CODE: [id number] XR FLUORO FOR SPINE INJ 28814 (Continued) Orig Print D/T: S: 02/19/2019 (1119) [facility] NAME: DOMENICO WYNN [address] [facility] PHYS: DOCUD - Doctor,Maged De Jesus MD [place], [place] [address] : 1935 AGE: 83 SEX: F LOC: NIRAV PHONE #: [phone] EXAM DATE: 02/19/2019 STATUS: REG SDC FAX #: [phone] RAD #: D/C DT PAGE 3 Signed Report- XR FLUORO FOR SPINE [id number] 08:25:00 Patient Name: DOMENICO WYNN Unit No: [id number] EXAMS: CPT CODE: [id number] XR FLUORO FOR SPINE INJ 69379 CERVICAL TRANSFORAMINAL INJECTION REFERRING PHYSICIAN: PREOPERATIVE DIAGNOSIS: Cervical radiculitis POSTOPERATIVE DIAGNOSIS: Bilateral cervical radiculopathy PROCEDURES PERFORMED: Fluoroscopically guided needle localization of the bilateral C6, bilateral C7 spinal nerves with transforaminal epidural steroid injection/injections. 2. Transforaminal epidurogram/epidurograms at bilateral C6,bilateral C7 FINDINGS: Poor filling all. Concordant provocation [...] fluoroscopy suite and placed in a supine positionwith all extremities padded and appropriate monitors placed. A sterile prep and drape was performed over the cervical spine. Using fluoroscopic visualization at each level the insertion site was markedfor a paravertebral approach to the foramen. Using standard technique, a 27gauge needle was advancedto the base of the pedicle. In AP [...] mg of Decadron was injected incrementally with frequentnegative aspirations.Each subsequent cervical nerve root sleeve was done with the same technique andmedications were used.There were no signs of intravascular or intrathecal uptake. The patient's vital signs remained stable. The patient was taken to the PACU in good condition. [facility] NAME: TIANNA,DOMENICO ANSHU [address] [facility] PHYS: Maged Dyer MD [place] [address] : 1935 AGE: 83 SEX: F LOC: NIRAV PHONE #: [phone] EXAM DATE:01/10/2019 STATUS: REG [facility] [place] FAX #: [phone] RAD #: D/C DT PAGE 1 Signed Report (CONTINUED) Patient Name: DOMENICO WYNN ANSHU Unit No: [id number] EXAMS: CPT CODE: [id number] XR FLUORO FOR SPINE INJ 67991 (Continued) at 0825 Reported and signed by: Maged Eduardo M.D. CC: Technologist: Summer Nieves(R) Transcribed D/ (824) [facility] [place] NAME: DOMENICO WYNN [address] [facility] PHYS: Maged Dyer MD [place] [address] : 1935 AGE: 83 SEX: F LOC: NIRAV PHONE #: [phone] EXAM DATE: 01/10/2019 STATUS: REG [facility] [place] FAX #: [phone] RAD #: D/C DT PAGE 2 Signed Report Patient Name: DOMENICO WYNN ANSHU Unit No: [id number] EXAMS: CPT CODE: [id number] XR FLUORO FOR SPINE INJ 86162 (Continued) Orig Print D/T: S: 01/10/2019 (827) [facility] NAME: DOMENICO WYNN [address] [facility] PHYS: Maged Dyer MD [place] [address] : 1935 AGE: 83 SEX: F LOC: NIRAV PHONE #: [phone] DATE: 01/10/2019 STATUS: REG [facility] [place] FAX #: [phone] RAD #: D/C DT PAGE 3 Signed Report- XR FLUORO FOR SPINE [id number] 12:33:00 Patient Name: DOMENICO WYNN Unit No: [id number] EXAMS: CPT CODE: [id number] XR FLUORO FOR SPINE INJ 45544 LUMBAR TRANSFORAMINAL INJECTION REFERRING PHYSICIAN: PREOPERATIVE DIAGNOSIS: DegenerativeLumbar Disc Disease. POSTOPERATIVE DIAGNOSIS: Bilateral lumbar radiculopathy PROCEDURES PERFORMED 1.Fluoroscopically guided needle localization of the bilateral L4, [...] suite and placed in a prone position withall extremities padded and appropriate monitors placed. A sterile prep and drape was performed overthe lumbosacral spine. Using fluoroscopic visualization at each level the insertion site was marked for a paravertebral approach to the foramen. Using standard technique, a 25 gauge needle was advancedto the base of the pedicle. In AP view, final positioning was obtained outside the 6 on the clock position on the pedicle. Then, 1 ml of Isovue-300 contrast was injected to produce the epidurograms. Noparesthesias were elicited with needle insertion or injection [...] Reported and signed by: Maged Eduardo M.D. [facility] NAME: DOMENICO WYNN [address] [facility] PHYS: Maged Dyer MD [place] [address] : 1935 AGE: 83 SEX: F LOC: NIRAV PHONE #: [phone] EXAM DATE: 12/19/2018 STATUS: REG [employer] FAX #: [phone] RAD #: D/C DT PAGE 1 Signed Report (CONTINUED) Patient Name: DOMENICO WYNN ANSHU Unit No: [id number] EXAMS: CPT CODE: [id number] XR FLUORO FOR SPINE INJ 33334 (Continued) CC: Maged Eduardo MD Technologist: CHIP ANDERSEN RT(R) TranscribedD/ (1233) [email or web address] [facility] NAME: DOMENICO WYNN [address] [facility] PHYS: Maged Dyer MD [place] [address] : 1935 AGE: 83 SEX: F LOC: NIRAV PHONE #: [phone] EXAM DATE: 12/19/2018 STATUS: REG [employer] FAX #: [phone] RAD #: D/C DT PAGE 2 Signed Report Patient Name: DOMENICO WYNN ANSHU Unit No: [id number] EXAMS:CPT CODE: [id number] XR FLUORO FOR SPINE INJ 47211 (Continued) Orig Print D/T: S: 12/19/2018 (1236) [facility] NAME: DOMENICO WYNN [address] [facility] PHYS: Maged Dyer MD [place] [address] : 1935 AGE: 83 SEX: F LOC: NIRAV PHONE #: [phone] EXAM DATE: 12/19/2018 STATUS: REG [employer] FAX #: [phone] RAD #: D/C DT PAGE 3 Signed Report- XR FLUORO FOR SPINE [id number] 12:24:00 Patient Name: DOMENICO WYNN Unit No: [id number] EXAMS: CPT CODE: [id number] XR FLUORO FOR SPINE INJ 03877 LUMBAR TRANSFORAMINAL INJECTION REFERRING PHYSICIAN: PREOPERATIVE DIAGNOSIS: DegenerativeLumbar Disc Disease. POSTOPERATIVE DIAGNOSIS: Lumbar radiculopathy PROCEDURES PERFORMED 1. Fluoroscopically guided needle localization of the bilateral L4, left L5, left L3 spinal nerve/nerves with transforaminal epidural steroid injection/injections. 2. Transforaminal epidurogram/epidurograms at bila teral L4, left L5, left L3. FINDINGS: Poor [...] Isovue-300 contrast was injected to produce the epidur ograms. No paresthesias were elicited with needle insertion [...] to the PACU in good condition. at 1224 Reported and signed by: Maged Eduardo M.D. [facility] NAME: DOMENICO WYNN ANSHU [address] [facility] PHYS: DOCUD - DoctorMaged MD [place] [address] : 1935 AGE: 82 SEX: F LOC: NIRAV PHONE #: [phone] EXAM DATE: 06/06/2018 STATUS: REG [employer] FAX #: [phone] RAD #: D/C DT PAGE 1 Signed Report (CONTINUED) Patient Name: DOMENICO WYNN ANSHU Unit No: [id number] EXAMS: CPT CODE: [id number] XR FLUOROFOR SPINE INJ 10833 (Continued) CC: Maged Eduardo MD Technologist: JEVON GARCIA RT(R) Transcribed D/ (1224) tMILLICENTUVD [facility] NAME: TIANNADOMENICO [address] [facility] PHYS: Maged Dyer MD [place] [address] : 1935 AGE: 82 SEX: F LOC: NIRAV PHONE #: [phone] EXAM DATE: 06/06/2018 STATUS: REG [facility] FAX #: [phone] RAD #: D/C DT PAGE 2 Signed Report Patient Name: DOMENICO WYNN ANSHU Unit No: [id number] EXAMS: CPT CODE: [id number] XR FLUORO FOR SPINE INJ 18593 (Continued) Orig Print D/T: S: 06/06/2018 (1227)[facility] NAME: TIANNA,DOMENICO BRASHER [address] [facility] PHYS: Maged Dyer MD [place] [address] : 1935 AGE: 82 SEX: F LOC: NIRAV PHONE #:[phone] EXAM DATE: 06/06/2018 STATUS: REG [facility] FAX #: [phone] RAD #: D/C DT PAGE 3 Signed Report- XR FLUORO FOR SPINE INJ 2018-04-25 11:30:00 Patient Name: DOMENICO WYNN ANSHU Unit No: [id number] EXAMS: CPT CODE: [id number] XR FLUORO FOR SPINE INJ 31950 LUMBAR TRANSFORAMINAL INJECTION REFERRING PHYSICIAN: PREOPERATIVE DIAGNOSIS: [...] OF PROCEDURE: After obtaining stable vital signs, in formed consent and IV access, with no known [...] Reported and signed by: Maged Eduardo M.D. [facility] NAME: DOMENICO WYNN [address] PHYS: DOCUD - Maged Eduardo MD [place], [place] [address] : 1935 AGE: 82 SEX: F LOC: Godwin[facility]ALYA PHONE #: [phone] EXAM DATE: 04/25/2018 STATUS: [facility] FAX #: [phone] RAD #: D/C DT PAGE 1 Signed Report (CONTINUED) Patient Name: DOMENICO WYNN ANSHU Unit No:[id number] EXAMS: CPT CODE: [id number] XR FLUORO FOR SPINE INJ 07115 (Continued) CC: Maged Eduardo MD Technologist: BIA GUZMAN RT(R) Transcribed D/ (1130) t.SDR.[facility] NAME: DOMENICO WYNN ANSHU [address] [facility] PHYS: Maged Dyer MD [place] [address] : 1935 AGE: 82 SEX: F LOC: NIRAV PHONE #: [phone] EXAM DATE: 04/25/2018 STATUS: [facility] FAX #: [phone] RAD #: D/C DT PAGE 2 Signed Report Patient Name: DOMENICO WYNN ANSHU Unit No: [id number] EXAMS: CPT CODE: [id number] XR FLUORO FOR SPINE INJ 10100 (Continued) Orig Print D/T: S: 04/28/2018 (1645) [facility] NAME: DOMENICO WYNN ANSHU [address] [facility] PHYS: Maged Dyer MD [place] [address] : 1935 AGE: 82 SEX: F LOC: NIRAV PHONE #: [phone] EXAM DATE: 04/25/2018 STATUS: [facility] FAX #: [phone] RAD #: D/C DT PAGE 3 Signed Report- XR C-SPINE 6+N1935-58-27 17:30:00 Patient Name: DOMENICO WYNN ANSHU Unit No: [id number] EXAMS: CPT CODE: [id number] XR C-SPINE 6+V 71991 COMPARISON: Concurrent CT. IMAGES PROVIDED: 7 FINDINGS: Grade 1 retrolisthesis of C5-C6 is present. No significant motion is seen with flexion/extension. No acute fracture. Marked disc degeneration is seen at C5-C6. Scattered cervical facet hypertrophy. Soft tissues are unremarkable. Lung apices are clear. IMPRESSION: Multilevel cervical spondylosis, greatest at C5- C6. at 1730 Reported and signed by: Aashish Winchester M.D. CC: Maged Eduardo MD Technologist: Amber Frausto RT.(R) Transcribed D/ (173) [email or web address]: DOMENICO WYNN ANSHU [address] [facility] PHYS: Maged Dyer MD : 1935 AGE: 82 SEX: F [place] [address] LOC: Y.RAD PHONE #: [phone] EXAM DATE: 04/10/2018 STATUS: DEP CLI FAX #: [phone] RAD #: D/C DT PAGE 1 Signed Report Patient Name: DOMENICO WYNN ANSHU Unit No: [id number] EXAMS: CPT CODE: [id number] XR C-SPINE 6+V 09098 (Continued) Orig Print D/T: S: 04/11/2018 (173) [facility] NAME: TIANNA,DOMENICONAGI BRASHER [address] [facility] PHYS: Maged Dyer MD : 1935 AGE: 82 SEX: F [place] [address] LOC: Y.RAD PHONE #: [phone] EXAM DATE: 04/10/2018 STATUS: DEP CLI FAX #: [phone] RAD #: D/C DT PAGE 2 Signed Report- CT C-SPINE W/O CONT 2018-04-11 10:32:00 Patient Name: DOMENICO WYNN ANSHU Unit No: [id number] EXAMS: CPT CODE: [id number] CT C-SPINE W/O CONT 89553 TECHNIQUE: Spiral CT images were obtained with axial images displayed of the cervical spine.Sagittal and coronal reconstructions were also performed. COMPARISON: Concurrent radiographs FINDINGS: Alignment: Retrolisthesis of C5-C6 measures 4 mm. Bone Lesion / Fracture: None present. Prevertebral / Paraspinal Soft Tissues: Unremarkable. C2/3: Broad disc bulge osteophyte complex. No significantforaminal or central canal stenosis. C3/4: Severe left, mild right facet hypertrophy is noted as well as bilateral uncovertebral hypertrophy. There is marked left, moderate right foraminal stenosis. Mild central canal stenosis. C4/5: Diffuse disc bulge is suspected. Moderate bilateral facet hypertrophy. There is mild left foraminal stenosis. No significant right foraminal stenosis. Mild central canalstenosis is visualized. C5/6: Severe disc degeneration with height loss and endplate marrow changes.Grade 1 retrolisthesis. Broad disc bulge osteophyte complex [...] cervical spondylosis, greatest at C5-C6, where there islikely moderate to severe central canal stenosis as well as moderate to severe left, severe right foraminal stenosis. at 1032 Reported and signed by: Aashish Winchester M.D. CC: Maged Eduardo MD Technologist: RT Lian(R) CTDI: DLP: Trnscrpt: 04/11/2018 (1032) t.SDR.[facility] NAME: TIANNADOMENICO ANSHU [address] [facility] PHYS: DOCUD - Maged Eduardo MD : 1935 AGE: 82 SEX: F [place] [address] LOC: Y.RAD PHONE #: [phone] EXAM DATE: 04/10/2018 STATUS: DEP CLI FAX #: [phone] RAD #: D/C DT PAGE 1 Signed Report Patient Name: DOMENICO WYNN ANSHU Unit No: [id number] EXAMS: CPT CODE: [id number] CT C-SPINE W/O CONT 84273 (Continued) Orig Print D/T: S: 04/11/2018 (1035) [facility] NAME: DOMENICO WYNN [address] [facility] [address] PHYS: DOCUD - Doctor,Maged De Jesus MD : 1935 AGE: 82 SEX: F [place], [place] [address] LOC: ANGELITA PHONE #: [phone] EXAM DATE: 04/10/2018 STATUS: DEP CLI FAX #: [phone] RAD #: D/C DT PAGE 2 Signed Report
[2022-01-07] MEDS ORDERED: ACETAMINOPHEN 325 MG TABLET ONE (14:24)
[2022-01-07] MEDS ORDERED: IBUPROFEN 400 MG TAB ONE (14:24)
--- NOTE | 2022-01-07 14:47 | RAD REPORT ---
EXAM DESCRIPTION: RAD - Pelvis - 01/07/2022 2:13 pm CLINICAL HISTORY: fall COMPARISON: No comparisons FINDINGS: Mild arthritic changes involving both hips. No fracture, dislocation or AVN.
--- NOTE | 2022-01-07 16:14 | RAD REPORT ---
EXAM DESCRIPTION: RAD - Hip Left 2 View - 01/07/2022 2:13 pm CLINICAL HISTORY: PAIN COMPARISON: No comparisons FINDINGS: Mild arthritic changes affect the left hip. No fracture, dislocation or AVN pattern observ ed.
--- NOTE | 2022-01-07 16:26 | RAD REPORT ---
EXAM DESCRIPTION: RAD - Knee Left 3 View - 01/07/2022 2:14 pm CLINICAL HISTORY: fall Fall, trauma, pain COMPARISON: No comparisons FINDINGS: Left total knee arthroplasty is present. No hardware loosening seen. No fracture is presen t. Small suprapatellar joint effusion.
--- NOTE | 2022-01-07 16:27 | RAD REPORT ---
EXAM DESCRIPTION: RAD - Foot Left 3 View - 01/07/2022 2:14 pm CLINICAL HISTORY: fall Fall, trauma, pain COMPARISON: No comparisons FINDINGS: Diffuse osteopenia is seen. Small posterior and plantar calcaneal spurs. Moderate arthriti c changes are present involving the tarsal- metatarsal articulations.
--- NOTE | 2022-01-07 17:33 | RAD REPORT ---
EXAM DESCRIPTION: CT - Abdomen Pelvis Wo Contrast - 01/07/2022 5:16 pm CLINICAL HISTORY: Abdominal pain. fall, left hip/pelvis pain COMPARISON: Abdomen Pelvis W/Wo Contrast dated 06/18/2021 TECHNIQUE: CT imaging of the abdomen and pelvis was performed without contrast. Solid organ, bowel a nd vascular assessment is limited due to lack of IV and oral contrast. All CT scans are performed using dose optimization technique as appropriate and may include automated exposure control or mA/KV adjustment according to patient size. FINDINGS: Linear atelectasis is present in the right lung base.Small hiatal hernia. Cholecystectomy clips. The liver, spleen, pancreas, adrenal glands and kidneys are within normal limits for a limited non-co ntrast examination. No bowel obstruction, free air, free fluid or abscess. Mild sigmoid diverticulosis coli without diver ticulitis. The appendix is normal. 7 mm anterolisthesis of L4 on 5 is present.No acute fracture is seen. IMPRESSION: No acute intra-abdominal or pelvic findings. A limited non-contrast examination was performed as detailed.
--- NOTE | 2022-01-07 17:44 | EDPHYS ---
Physician Documentation [facility] Name: Liberty Baker Age: 86 yrs Sex: Female : 1935 Arrival Date: 01/07/2022 Time: 12:51 Bed 12 Private MD: ED Physician Dharmesh Cuellar HPI: 01/07 13:45 This 86 yrs old Female presents to ER via Ambulatory with complaints of Fall Injury. cp 13:45 Details of fall: The patient fell from an upright position, while walking, and struck a cp tile surface. 13:45 Onset: The symptoms/episode began/occurred this morning. Associated injuries: The cp patient sustained left hip, painful injury, left knee, painful injury, left first toe, painful injury. Severity of symptoms: in the emergency department the symptoms are unchanged, despite home interventions. Historical: - Allergies: 13:03 Codeine; ld1 - PMHx: 13:03 Hypercholesterolemia; ld1 - PSHx: 13:03 Cholecystectomy; Total abdominal hysterectomy; ld1 - Immunization history:: Adult Immunizations up to date, Client reports receiving the 2nd dose of the Covid vaccine. - Social history:: Smoking status: Patient denies any tobacco usage or history of. Patient/guardian denies using alcohol. ROS: 13:50 Constitutional: Negative for body aches, chills, fever, poor PO intake. cp 13:50 Eyes: Negative for injury, pain, redness, and discharge. cp 13:50 Neck: Negative for pain with movement, pain at rest, stiffness. 13:50 Respiratory: Negative for cough, shortness of breath, wheezing. 13:50 Abdomen/GI: Negative for abdominal pain, nausea, vomiting, and diarrhea. 13:50 Back: Negative for decreased range of motion. 13:50 MS/extremity: Positive for pain, of the left hip and left first toe and left knee, Negative for decreased range of motion, deformity, paresthesias. 13:50 Neuro: Negative for altered mental status, headache, loss of consciousness, syncope, weakness. 13:50 All other systems are negative. Exam: 13:55 Constitutional: The patient appears in no acute distress, alert, awake, well developed, cp well nourished, uncomfortable. 13:55 Head/Face: Normocephalic, atraumatic. cp 13:55 Neck: C-spine: vertebral tenderness, is not appreciated, crepitus, is not appreciated, ROM/movement: is normal, is supple, without pain, no range of motions limitations. 13:55 Chest/axilla: Inspection: normal, Palpation: is normal, no crepitus, no tenderness. 13:55 Cardiovascular: Rate: normal. 13:55 Respiratory: the patient does not display signs of respiratory distress, Respirations: normal, no use of accessory muscles, no retractions. 13:55 Abdomen/GI: Inspection: abdomen appears normal, Palpation: abdomen is soft and non-tender, in all quadrants. 13:55 Back: pain, that is moderate, of the left low back, ROM is painful, with all movement, vertebral tenderness, is not appreciated. 13:55 Musculoskeletal/extremity: Extremities: grossly normal except: noted in the left hip: pain, tenderness, noted in the left knee: pain, tenderness, noted in the left first toe: pain, swelling, tenderness, Pulses: noted to be 2+ in the left dorsalis pedis artery, the left leg Sensation intact. 13:55 Neuro: Orientation: to person, place \T\ time. Mentation: is normal, Motor: moves all fours, strength is normal, Gait: is steady. Vital Signs: 13:01 BP 119 / 58; Pulse 78; Resp 18; Temp 97.9(TE); Pulse Ox 97% on R/A; Weight 79.83 kg; ld1 Height 5 ft. 5 in. (165.10 cm); Pain 6/10; 13:01 Body Mass Index 29.29 (79.83 kg, 165.10 cm) ld1 MDM: 13:14 Patient medically screened. cp 17:43 Data reviewed: vital signs, nurses notes, radiologic studies, CT scan, plain films. cp 17:43 Test interpretation: by ED physician or midlevel provider: plain radiologic studies. cp Counseling: I had a detailed discussion with the patient and/or guardian regarding: the historical points, exam findings, and any diagnostic results supporting the discharge/admit diagnosis, radiology results, to return to the emergency department if symptoms worsen or persist or if there are any questions or concerns that arise at home. Response to treatment: the patient's symptoms have markedly improved after treatment, and as a result, I will discharge patient. 01/07 13:37 Order name: XRAY Pelvis; Complete Time: 15:52 cp 01/07 13:37 Order name: XRAY Hip LEFT 2 view; Complete Time: 17:38 cp 01/07 13:37 Order name: XRAY Knee LEFT 3 view; Complete Time: 17:38 cp 01/07 13:37 Order name: XRAY Foot LEFT 3 View; Complete Time: 17:38 cp 01/07 16:44 Order name: CT Abd/Pelvis - Without Contrast cp 01/07 16:48 Order name: Abdomen ; Complete Time: 17:38 EDMS Administered Medications: 14:33 Not Given (Patient Refused): Ibuprofen 800 mg PO once iw 14:34 Not Given (Patient Refused): Tylenol 650 mg PO once iw Disposition Summary: 01/07/22 17:43 Discharge Ordered Location: Home cp Problem: new cp Symptoms: have improved cp Condition: Stable cp Diagnosis - Fall on same level, unspecified cp - Pain in left hip cp - Pain in left knee cp - Pain in left foot cp Followup: cp - With: Private Physician - When: 2 - 3 days - Reason: Worsening of condition Discharge Instructions: - Discharge Summary Sheet cp - Elastic Bandage and RICE Therapy cp - Acute Knee Pain, Adult cp - Hip Pain cp - Foot Pain cp Forms: - Medication Reconciliation Form cp - Thank You Letter cp - Antibiotic Education cp - Prescription Opioid Use cp Prescriptions: - Diclofenac Sodium 75 mg Oral tablet,delayed release (DR/EC) - take 1 tablet by ORAL route 2 times per day; 20 tablet; Refills: 0, Product cp Selection Permitted Addendum: 01/10/2022 08:00 Co-signature as Attending Physician, Dharmesh Cuellar MD I agree with the assessment and c silver plan of care. Signatures: Dispatcher [employer] Dharmesh Liang MD MD cha Page, Corey, PA PA cp Grazyna Soto RN RN ld1 Luzmaria Lund RN iw
--- NOTE | 2022-01-07 17:44 | ER ---
Nurse's Notes [facility] Name: Liberty Baker Age: 86 yrs Sex: Female : 1935 Arrival Date: 01/07/2022 Time: 12:51 Bed 12 Private MD: Diagnosis: Fall on same level, unspecified;Pain in left hip;Pain in left knee;Pain in left foot Presentation: 01/07 13:01 Chief complaint: Patient states: Pt reports falling in kitchen at 0930 this morning due ld1 to toe getting caught on floor - fell forward from standing. C/O left great toe pain, left knee \T\ left hip pain. Denies LOC - did not hit head. Coronavirus screen: At this time, the client does not indicate any symptoms associated with coronavirus-19. Ebola Screen: No symptoms or risks identified at this time. Initial Sepsis Screen: Does the patient meet any 2 criteria? No. Patient's initial sepsis screen is negative. Does the patient have a suspected source of infection? No. Patient's initial sepsis screen is negative. Risk Assessment: Do you want to hurt yourself or someone else? Patient reports no desire to harm self or others. Onset of symptoms was January 07, 2022. 13:01 Method Of Arrival: Ambulatory ld1 13:01 Acuity: PASCUAL 3 ld1 Triage Assessment: 13:03 General: Appears in no apparent distress. comfortable, Behavior is calm, cooperative, ld1 appropriate for age. Pain: Complains of pain in left hip, left first toe and left leg Pain does not radiate. Pain Quality of pain is described as aching, throbbing, Pain began. EENT: No signs and/or symptoms were reported regarding the EENT system. Neuro: Level of Consciousness is awake, alert, obeys commands, Oriented to person, place, time, situation. Cardiovascular: Capillary refill < 3 seconds Patient's skin is warm and dry. Respiratory: Airway is patent Respiratory effort is even, unlabored. GI: Abdomen is round non-distended. : No signs and/or symptoms were reported regarding the genitourinary system. Historical: - Allergies: 13:03 Codeine; ld1 - PMHx: 13:03 Hypercholesterolemia; ld1 - PSHx: 13:03 Cholecystectomy; Total abdominal hysterectomy; ld1 - Immunization history:: Adult Immunizations up to date, Client reports receiving the 2nd dose of the Covid vaccine. - Social history:: Smoking status: Patient denies any tobacco usage or history of. Patient/guardian denies using alcohol. Assessment: 14:33 Reassessment: Patient appears in no apparent distress at this time. Patient and/or iw family updated on plan of care and expected duration. Pain level reassessed. Patient is alert, oriented x 3, equal unlabored respirations, skin warm/dry/pink. Vital Signs: 13:01 BP 119 / 58; Pulse 78; Resp 18; Temp 97.9(TE); Pulse Ox 97% on R/A; Weight 79.83 kg; ld1 Height 5 ft. 5 in. (165.10 cm); Pain 6/10; 13:01 Body Mass Index 29.29 (79.83 kg, 165.10 cm) ld1 ED Course: 12:51 Patient arrived in ED. as 13:03 Triage completed. ld1 13:03 Arm band placed on right wrist. ld1 13:14 Dharmesh Wagner PA is PHCP. cp 13:14 Dharmesh Cuellar MD is Attending Physician. cp 14:15 XRAY Pelvis In Process Unspecified. EDMS 14:15 XRAY Hip LEFT 2 view In Process Unspecified. EDMS 14:15 XRAY Knee LEFT 3 view In Process Unspecified. EDMS 14:15 XRAY Foot LEFT 3 View In Process Unspecified. EDMS 14:33 Luzmaria Lund, RN is Primary Nurse. iw 17:18 Abdomen In Process Unspecified. EDMS Administered Medications: 14:33 Not Given (Patient Refused): Ibuprofen 800 mg PO once iw 14:34 Not Given (Patient Refused): Tylenol 650 mg PO once iw Outcome: 17:43 Discharge ordered by . cp 18:10 Patient left the ED. iw Signatures: Dispatcher [employer] EDMS Ebonie Hernandez as Luzmaria Lund, RN RN iw Dharmesh Wagner PA PA cp Grazyna Soto RN RN ld1
[2022-01-07 18:26] VITALS: BP 119/58; TEMP 97.9; O2SAT 97
== END 2022-01-07 18:10 | disposition home or self-care (01) ==
LOC: ER 12:49
DX: M25.552 Pain in left hip (principal); M25.562 Pain in left knee; M79.672 Pain in left foot; W18.30XA Fall on same level, unspecified, initial encounter; Z88.5 Allergy status to narcotic agent
CPT/HCPCS: 72170; 74176; 99282